=== PATIENT | male | born 1960 | race Caucasian/White ===

== ENCOUNTER 2017-01-17 10:51 | Emergency (ER) | payer OTHER | END 2017-01-17 14:10 | disposition home or self-care (01) | DX: K62.5 Hemorrhage of anus and rectum (principal); R03.0 Elevated blood-pressure reading, without diagnosis of hypertension; I48.91 Unspecified atrial fibrillation; Z87.19 Personal history of other diseases of the digestive system ==

== ENCOUNTER 2018-10-27 13:28 | Outpatient (CLI) | payer OTHER ==
--- NOTE | 2018-10-27 22:52 | Ultrasound Report ---
Reason: OTHER SPECIFIED JOINT DISORDERS, LEFT WRIST, MASS Procedure Date: 10/27/2018 Accession Number: [id number] / [id number] Procedure: US - Ext Limited Non Vascular CPT Code: FULL RESULT: EXAM: LEFT UPPER EXTREMITY ULTRASOUND - LIMITED EXAM DATE: 10/27/2018 01:37 PM. CLINICAL HISTORY: OTHER SPECIFIED JOINT DISORDERS, LEFT WRIST, MASS. COMPARISON: None. TECHNIQUE: Real-time scanning was performed with static images obtained. FINDINGS: Palpable finding corresponds to a subcutaneous nodular structure at the first carpometacarpal joint measuring 1.2 x 1.2 x 0.5 cm. No solid components or vascularity is noted. The nodular structure is superficial to the radial artery. Definite continuity with the joint space is not seen. The remaining soft tissues are unremarkable. IMPRESSION: Palpable finding corresponds to the focal hypoechoic cystic structure measuring 1.2 x 1.2 x 0.5 cm. No definite continuity with the joint space. If the finding continues to increase in size or becomes painful, recommend MRI examination. No additional soft tissue mass or adenopathy. RADIA
== END 2018-10-27 13:29 | disposition home or self-care (01) ==
LOC: DI 13:28
PROVIDERS: ATTEND Nurse Practitioner Family
DX: M25.832 Other specified joint disorders, left wrist (principal)
CPT/HCPCS: 76882

== ENCOUNTER 2020-05-19 17:41 | Emergency (ER) | payer OTHER ==
--- NOTE | 2020-05-19 18:27 | XRAY Report ---
PROCEDURE: Elbow 3 View RT INDICATIONS: Trauma TECHNIQUE: 3 views of the elbow were acquired. COMPARISON: None FINDINGS: Bones: No fractures or dislocations. No suspicious bony lesions. Soft tissues: There is marked elevation of the anterior fat pad with a large joint effusion. Marked s oft tissue swelling overlies the olecranon. No unexpected radiopaque foreign bodies. IMPRESSION: 1. Large joint effusion and marked soft tissue swelling over the olecranon suggesting bursitis. Pleas e note, simple joint effusion cannot be differentiated from septic arthritis in this situation. Pleas e correlate with laboratory values. Reviewed by: Christin Carrera MD on 05/19/2020 6:25 PM PDT Approved by: Christin Carrera MD on 05/19/2020 6:25 PM PDT Station ID: [id number]
[2020-05-19 18:55] LABS: BASOPHILS # (AUTO) 0.1 10^3/uL (0.0-0.1); BASOPHILS % (AUTO) 0.4 %; EOSINOPHILS % (AUTO) 0.3 %; HGB - HEMOGLOBIN 16.2 g/dL (14.0-18.0); LYMPHOCYTES # (AUTO) 1.3 10^3/uL (1.5-3.5); LYMPHOCYTES % (AUTO) 11.2 %; MEAN CORPUSCULAR HEMOGLOBIN 35.3 pg (27.0-31.0); MEAN CORPUSCULAR HGB CONC 35.6 g/dL (32.0-36.0); MEAN CORPUSCULAR VOLUME 99.1 fL (80.0-94.0); MEAN PLATELET VOLUME 8.5 fL (7.4-11.4); NEUTROPHILS % (AUTO) 78.6 %; PLT - PLATELET COUNT 268 10^3/uL (130-450); RED BLOOD COUNT 4.59 10^6/uL (4.70-6.10); WHITE BLOOD COUNT 11.5 x10^3/uL (4.8-10.8)
--- NOTE | 2020-05-19 19:07 | ED Physician Documentation ---
History of Present Illness - Stated complaint Stated Complaint: RT ARM PX - Chief complaint Chief Complaint: Ext Problem - History obtained from History obtained from: Patient - Additonal information Additional information: Patient is a 60-year-old male presents with right elbow swelling. He reports he has had a history of 2 surgeries on his right elbow the first was after he he had cellulitis to his elbow and then he reports bursitis and had an extended course of treatment with IV antibiotics through PICC line for several weeks ultimately the patient states that he went to the [facility] and was treated there by orthopedic surgery and infectious disease were eventually had a washout. He subsequently Developed a right triceps tendon rupture he eventually had surgery for that at the [facility] and the orthopedic surgery department as well. Actually today on arrival he reports he was sent here from a nurse practitioner for further evaluation the patient adamantly states he does not want any procedures done here such as incision or drainage or surgery or joint needle aspiration. Patient states he has an appointment tomorrow morning with his orthopedic surgeon at [facility] and states that he plans on going to the emergency department either tonight or tomorrow morning at the [facility] for further treatment.He denies any fevers he denies any new trauma. Review of Systems Constitutional: reports: Reviewed and negative Eyes: reports: Reviewed and negative Ears: reports: Reviewed and negative Nose: reports: Reviewed and negative Throat: reports: Reviewed and negative Cardiac: reports: Reviewed and negative Respiratory: reports: Reviewed and negative GI: reports: Reviewed and negative : reports: Reviewed and negative Skin: reports: Other (Right elbow swelling) Musculoskeletal: reports: Other (Right elbow swelling) Neurologic: reports: Reviewed and negative Psychiatric: reports: Reviewed and negative Endocrine: reports: Reviewed and negative Immunocompromised: reports: Reviewed and negative PD PAST MEDICAL HISTORY - Past Medical History Cardiovascular: Atrial fibrillation GI: Diverticulitis, Other - Past Surgical History General: Hiatal hernia repair - Present Medications Home Medications: Ambulatory Orders Medication Instructions Recorded Confirmed Aspirin 81 mg PO DAILY 01/17/17 03/28/17 Omeprazole [PriLOSEC] 20 mg PO DAILY 01/17/17 03/28/17 diltiaZEM [Cardizem] 60 mg PO ONCE 03/28/17 03/28/17 Clindamycin [Cleocin] 450 mg PO TID 14 Days #126 capsule 05/19/20 - Allergies Allergies/Adverse Reactions: Allergies Allergy/AdvReac Type Severity Reaction Status Date / Time No Known Drug Allergies Allergy Verified 05/19/20 17:49 - Social History Does the pt smoke?: No Smoking Status: Never smoker Does the pt drink ETOH?: Yes Does the pt have substance abuse?: Yes - Immunizations Immunizations are current?: Yes PD ED PE NORMAL - Vitals Vital signs reviewed: Yes - General General: Alert and oriented X 3, No acute distress - HEENT HEENT: PERRL - Neck Neck: Supple, no meningeal sign - Cardiac Cardiac: RRR, No murmur - Respiratory Respiratory: Clear bilaterally - Abdomen Abdomen: Normal bowel sounds, Soft, Non tender, Non distended - Derm Derm: Warm and dry - Extremities Extremities: No deformity, Other (The bursa over the right elbow is swollen it is not warm to touch its not erythematous he does have decreased range of motion radian, median ulnar motor and sensory exam are intact compartments are soft sensations intact light touch) - Neuro Neuro: Alert and oriented X 3 - Psych Psych: Normal mood, Normal affect Results - Vitals Vitals: Vital Signs - 24 hr 05/19/20 05/19/20 05/19/20 17:49 19:31 19:40 Temperature 37 C Heart Rate 115 H 114 H Respiratory 16 17 16 Rate Blood Pressure 136/97 H 138/106 H O2 Saturation 94 96 Oxygen O2 Source Room air - Labs Labs: Laboratory Tests 05/19/20 05/19/20 05/19/20 18:50 18:50 18:50 WBC 11.5 H RBC 4.59 L Hgb 16.2 Hct 45.5 MCV 99.1 H MCH 35.3 H MCHC 35.6 RDW 12.0 Plt Count 268 MPV 8.5 Neut # (Auto) 9.0 H Lymph # (Auto) 1.3 L [place] # (Auto) 1.0 Eos # (Auto) 0.0 Baso # (Auto) 0.1 Absolute Nucleated RBC 0.00 Nucleated RBC % 0.0 ESR 4 Sodium 135 Potassium 3.6 Chloride 99 L Carbon Dioxide 23 Anion Gap 13.0 BUN 13 Creatinine 1.0 Estimated GFR (MDRD) 76 L Glucose 90 Calcium 9.3 Total Bilirubin 1.2 H AST 30 ALT 52 Alkaline Phosphatase 71 C-Reactive Protein 19.4 H Total Protein 7.8 Albumin 4.4 Globulin 3.4 Albumin/Globulin Ratio 1.3 Lipase 27 PD MEDICAL DECISION MAKING - ED course Complexity details: considered differential (likely bursitis but need to rule out septic arthritis. patient does not want procedure done here. he has an appointment tomorrow morning with his orthopedic surgeon at . ), other (i recommended joint aspiration, patient is refusing. he has medical decision making capability and capacity and accepts all liability and responsibilty for any possible adverse outcome.) ED course: I had an extensive conversation with this patient regarding his swollen elbow. I updated him on his lab results as well as his imaging. I did recommend that we do joint aspiration to send off for analysis over the patient's refusing he reports that he has an appointment at the [facility] tomorrow morning with orthopedic surgeon and that if he develops fevers or worsening pain or swelling tonight he will go the emergency department at [facility] I recommend that he stay here and allow us to treat him by sending a sample of joint fluid from his right elbow however he is refusing he has medical decision-making capability capacity and assumes all risk and all liability. Patient will be started on oral antibiotics I did recommend an IV and IV antibiotics again the patient is refusing treatment. He is provided a prescription for clindamycin and given his first dose of clindamycin in the emergency department. Departure - Departure Disposition: 01 Home, Self Care Clinical Impression: Olecranon bursitis, right elbow Condition: Stable Instructions: ED Bursitis Elbow Olecranon Follow-Up: Jeanie Villasenor PA [Primary Care Provider] - Tomorrow Prescriptions: Clindamycin [Cleocin] 450 mg PO TID 14 Days #126 capsule Comments: follow up with orthopedic surgery tomorrow morning. if you have worsening pain, swelling or fever please return to an ED immediately. take clindamycin as directed. Discharge Date/Time: 05/19/20 19:49
[2020-05-19 19:27] LABS: ALBUMIN 4.4 g/dL (3.2-5.5); ALBUMIN/GLOBULIN RATIO 1.3 (1.0-2.2); BILIRUBIN,TOTAL 1.2 mg/dL (0.2-1.0); CALCIUM 9.3 mg/dL (8.5-10.3); CRP - C-REACTIVE PROTEIN 19.4 mg/dL (0-1.0); TOTAL PROTEIN 7.8 g/dL (6.7-8.2)
[2020-05-19] MEDS: CLINDAMYCIN 150 MG CAPSULE PO STA (19:28)
[2020-05-19 19:32] VITALS: BP 138/106
== END 2020-05-19 19:49 | disposition home or self-care (01) ==
LOC: ED 17:41
DX: M70.21 Olecranon bursitis, right elbow (principal); Z79.82 Long term (current) use of aspirin; Z53.20 Procedure and treatment not carried out because of patient's decision for unspecified reasons
CPT/HCPCS: 36415; 73080; 80053; 83690; 85025; 85651; 86140; 99284; A9270

== ENCOUNTER 2020-05-22 08:30 | Outpatient (CLI) | payer OTHER | END 2020-05-22 08:31 | disposition home or self-care (01) | LOC: COV 08:30 | PROVIDERS: ATTEND Family Medicine | DX: R50.9 Fever, unspecified (principal); Z20.828 Contact with and (suspected) exposure to other viral communicable diseases ==

== ENCOUNTER 2020-05-22 08:39 | Emergency (ER) | payer OTHER ==
[2020-05-22] MEDS ORDERED: BUFFERED LIDOCAINE 10 ML SYRINGE SUBQ STA (09:31)
--- NOTE | 2020-05-22 09:59 | ED Physician Documentation ---
History of Present Illness - Stated complaint Stated Complaint: RT ELBOW SWELLING - Chief complaint Chief Complaint: Ext Problem - History obtained from History obtained from: Patient - History of Present Illness Timing: How many days ago (5) - Additonal information Additional information: 60-year-old male with history of olecranon bursitis that became septic 3 years ago resulting in eventual triceps tendon rupture and repair has developed symptoms again about 5 days ago with swelling into his right elbow. The only thing he recalls to injury it is doing a bit of excessive housework with mopping. He presented to the emergency department 2 days ago and refused drainage at that time stating he had appointments he is orthopedic doctor the next day. Yesterday he developed a low-grade fever and his appointment was canceled and asked the patient to get a rapid COVID test and go to the emergency department. The patient re-presents here today with persistent swelling he states that the pain is no worse than it was earlier and the swelling does not appear to be much worse there is no significant redness to the area and the patient's fever has defervesced. He has been taking clindamycin. Review of Systems Constitutional: reports: Fever (resolved), Chills Ears: denies: Ear pain Nose: denies: Congestion Throat: denies: Sore throat Cardiac: denies: Chest pain / pressure Respiratory: denies: Dyspnea, Cough GI: denies: Abdominal Pain, Nausea, Vomiting : denies: Dysuria Skin: denies: Rash Musculoskeletal: reports: Joint pain, Joint swelling. denies: Neck pain, Back pain Neurologic: denies: Generalized weakness, Focal weakness, Numbness PD PAST MEDICAL HISTORY - Past Medical History Cardiovascular: Atrial fibrillation Respiratory: None Neuro: None Endocrine/Autoimmune: None GI: Diverticulitis, Other : None HEENT: None Psych: None Musculoskeletal: Other Derm: None - Past Surgical History Past Surgical History: Yes General: Hiatal hernia repair - Present Medications Home Medications: Ambulatory Orders Medication Instructions Recorded Confirmed Aspirin 81 mg PO DAILY 01/17/17 03/28/17 Omeprazole [PriLOSEC] 20 mg PO DAILY 01/17/17 03/28/17 diltiaZEM [Cardizem] 60 mg PO ONCE 03/28/17 03/28/17 Clindamycin [Cleocin] 450 mg PO TID 14 Days #126 capsule 05/19/20 - Allergies Allergies/Adverse Reactions: Allergies Allergy/AdvReac Type Severity Reaction Status Date / Time No Known Drug Allergies Allergy Verified 05/22/20 08:52 - Social History Does the pt smoke?: No Smoking Status: Never smoker Does the pt drink ETOH?: Yes Does the pt have substance abuse?: Yes - Immunizations Immunizations are current?: Yes - POLST Patient has POLST: No PD ED PE NORMAL - Vitals Vital signs reviewed: Yes (hypertensive ) - General General: Alert and oriented X 3, No acute distress, Well developed/nourished - HEENT HEENT: Atraumatic, PERRL, EOMI - Respiratory Respiratory: No respiratory distress - Derm Derm: Normal color, Warm and dry, No rash - Extremities Extremities: Other (There is swelling to the right olecrenon with mild tenderness, fluctuance and no significant erythema. The distal n/v is intact. ) - Neuro Neuro: Alert and oriented X 3, pulper tender 2-12 intact, No motor deficit, No sensory deficit, Normal speech Eye Opening: Spontaneous Motor: Obeys Commands Verbal: Oriented GCS Score: 15 - Psych Psych: Normal mood, Normal affect Results - Vitals Vitals: Vital Signs - 24 hr 05/22/20 05/22/20 05/22/20 08:40 10:41 12:15 Temperature 36.7 C 37.1 C Heart Rate 97 83 86 Respiratory 16 18 16 Rate Blood Pressure 128/98 H 126/99 H 111/98 H O2 Saturation 100 96 94 Oxygen O2 Source Room air - Labs Labs: Microbiology 05/22/20 Unknown Wound Culture - Preliminary Elbow - Right Procedures - Arthrocentesis Joint: Elbow Preparation: Sterile prep and drape Anesthesia: Lidocaine 1% Fluid: Cloudy, Sent for culture, Fluid obtained - cc (74) Aftercare: Dressing applied, No complications, Patient tolerated well PD MEDICAL DECISION MAKING - ED course Complexity details: reviewed old records, reviewed results, re-evaluated patient, considered differential, d/w patient, d/w healthcare network pricing consultant (Dr. Treviño at [facility] orthopedics recommends aspiration and culture with follow up. ) ED course: 60-year-old male with an acute olecranon bursitis with fluctuance is reluctant to have us drain his bursa here and I have contacted his orthopedic surgeon at [facility] who recommends drainage of the bursa and culture. The bursa is drained in a sterile fashion with return of 74 mL's of pus. We will continue the patient on his clindamycin and we now have a specimen for sensitivities. I believe the patient has demonstrated a response to the clindamycin and that he did not have progression of symptoms with the significant infectious load he has. I have offered the patient a dose of ertapenem which is what he had when he was treated at the [facility] 3 years ago. This is not available outside of the infusion clinic and vanco is reommended and the patient is given a single dose. Gram stain has a lot of WBC's and no organisms seen. Departure - Departure Disposition: Home, Self Care Clinical Impression: Olecranon bursitis, right elbow Condition: Stable Instructions: ED Bursitis Elbow Olecranon Follow-Up: Jeanie Villasenor PA [Primary Care Provider] - Porfirio Barbour MD [facility] [Other] Comments: Today there is infection in the bursa and you may require further treatment including surgery to wash the area out. We were able to obtain a specimen for culture today and results should be fully available in 3 days time. In the mean time take the clindamycin as prescribed. If you have worsening or new symptoms follow up here or with your doctors at the [facility]. Follow up with Dr. Griffin this coming week.
[2020-05-22] MEDS ORDERED: VANCOMYCIN INJ 1 GM in SODIUM CHLORIDE 0.9% 500 ML IV STA (10:13)
[2020-05-22] MEDS ORDERED: VANCOMYCIN INJ 1 GM, VANCOMYCIN INJ 500 MG in SODIUM CHLORIDE 0.9% 500 ML IV STA (10:15)
[2020-05-22] MEDS ORDERED: VANCOMYCIN INJ 1.75 GM in SODIUM CHLORIDE 0.9% 500 ML IV STA (10:16)
[2020-05-22 12:16] VITALS: BP 111/98
== END 2020-05-22 12:53 | disposition home or self-care (01) ==
LOC: ED 08:39
DX: M70.21 Olecranon bursitis, right elbow (principal); Z79.82 Long term (current) use of aspirin; R50.9 Fever, unspecified; R05 Cough; Z20.828 Contact with and (suspected) exposure to other viral communicable diseases
CPT/HCPCS: 20605; 87070; 87205; 87635; 96365; 96366; 99284; J3370

== ENCOUNTER 2020-05-30 08:18 | Emergency (ER) | payer OTHER ==
[2020-05-30] MEDS ORDERED: BUFFERED LIDOCAINE 10 ML SYRINGE SUBQ STA (08:24)
--- NOTE | 2020-05-30 08:25 | ED Physician Documentation ---
PD HPI UPPER EXT INJURY - Stated complaint Stated Complaint: RT ELBOW PX - History obtained from History obtained from: Patient - Additonal information Additional information: 60-year-old gentleman with a long history of problems with the right olecranon bursa. History of prolonged IV antibiotic therapy and subsequently required a Achilles allograft there. More recently has developed pain and swelling over the right elbow with some redness, no fevers. Has had it drained here and it grew group B strep. He remains on antibiotics but the effusion has returned. Review of Systems Constitutional: reports: Reviewed and negative Cardiac: reports: Reviewed and negative Respiratory: reports: Reviewed and negative PD PAST MEDICAL HISTORY - Past Medical History Cardiovascular: Atrial fibrillation Respiratory: None Neuro: None Endocrine/Autoimmune: None GI: Diverticulitis, Other : None HEENT: None Psych: None Musculoskeletal: Other Derm: None - Past Surgical History Past Surgical History: Yes General: Hiatal hernia repair - Present Medications Home Medications: Ambulatory Orders Medication Instructions Recorded Confirmed Aspirin 81 mg PO DAILY 01/17/17 03/28/17 Omeprazole [PriLOSEC] 20 mg PO DAILY 01/17/17 03/28/17 diltiaZEM [Cardizem] 60 mg PO ONCE 03/28/17 03/28/17 Clindamycin [Cleocin] 450 mg PO TID 14 Days #126 capsule 05/19/20 - Allergies Allergies/Adverse Reactions: Allergies Allergy/AdvReac Type Severity Reaction Status Date / Time No Known Drug Allergies Allergy Verified 05/30/20 08:28 - Social History Does the pt smoke?: No Smoking Status: Never smoker Does the pt drink ETOH?: Yes Does the pt have substance abuse?: Yes - Immunizations Immunizations are current?: Yes - POLST Patient has POLST: No PD ED PE NORMAL - Vitals Vital signs reviewed: Yes - General General: Alert and oriented X 3, No acute distress - Extremities Extremities: Other (Swollen and red over the olecranon bursa with minimally painful range of motion of the right elbow.) - Neuro Neuro: Alert and oriented X 3, Normal speech Results - Vitals Vitals: Vital Signs - 24 hr 05/30/20 08:25 Temperature 36.6 C Heart Rate 89 Respiratory 16 Rate Blood Pressure 155/108 H O2 Saturation 96 Oxygen O2 Source Room air Procedures - General procedure General procedure: Right elbow was prepped and draped and locally infiltrated with buffered lidocaine. Tried to aspirate with an 18-gauge needle but really not much came out. Subsequently made a tiny stab incision just with a needle and a large amount of thick purulent material was removed. Departure - Departure Disposition: Home, Self Care Clinical Impression: Olecranon bursitis, right elbow Condition: Good Record reviewed to determine appropriate education?: Yes Instructions: ED Bursitis Comments: Continue antibiotics, follow-up with your surgeon on Monday as discussed. Let him know that previous culture grew group B strep. Bring your prescription for antibiotics with you to that appointment.
[2020-05-30 09:02] VITALS: BP 128/101
== END 2020-05-30 09:02 | disposition home or self-care (01) ==
LOC: ED 08:18
DX: M70.21 Olecranon bursitis, right elbow (principal)
CPT/HCPCS: 20605

== ENCOUNTER 2022-03-21 09:34 | Emergency (ER) | payer OTHER ==
[2022-03-21 09:46] VITALS: BP 163/100
--- NOTE | 2022-03-21 10:00 | ED Physician Documentation ---
PD HPI UPPER EXT INJURY - Stated complaint Stated Complaint: RT ELBOW PAIN/INJURY - Chief complaint Chief Complaint: Ext Problem - History obtained from History obtained from: Patient - History of Present Illness Location: Right, Elbow Timing - onset: Last night - Additonal information Additional information: 62-year-old male with history of recurrent right elbow bursitis presents from home by private vehicle for 1 day of right elbow swelling. Patient states that whenever he overexerts himself it becomes swollen. Last time this happened the swelling became so large it became infected and required drainage in the emergency department. Patient is here for evaluation of his elbow to make sure that it is not infected and does not need additional drainage. Denies pain, fever, pain with range of motion, numbness, weakness, tingling Review of Systems Constitutional: denies: Fever, Chills, Myalgias, Fatigue, Weight Loss, Sweats, Reviewed and negative, Other Eyes: denies: Loss of vision, Decreased vision, Photophobia, Discharge, Irritation, Reviewed and negative, Other Ears: denies: Loss of hearing, Ear pain, Drainage/discharge, Tinnitus/ringing, Foreign body, Reviewed and negative, Other Nose: denies: Rhinorrhea / runny nose, Congestion, Epistaxis, Sinus pressure / pain, Foreign Body, Reviewed and negative, Other Throat: denies: Dental pain / toothache, Oral lesions / sores, Sore throat, Swollen tonsils, Swallowed foreign body, Reviewed and negative, Other Cardiac: denies: Chest pain / pressure, Palpitations, Pedal edema, Calf pain, Reviewed and negative, Other Respiratory: denies: Dyspnea, Cough, Hemoptysis, Wheezing, Reviewed and negative, Other GI: denies: Abdominal Pain, Abdominal Swelling, Nausea, Vomiting, Constipation, Diarrhea, Hematemesis, Bloody / black stool, Reviewed and negative, Other : denies: Dysuria, Frequency, Hesitancy, Unable to Void, Incontinent, Hematuria, Discharge, LMP, Vaginal bleeding, Irregular menses, Missed period, Now EGA, Control, Hysterectomy, Testicular pain, Testicular mass, To Problem, Reviewed and negative, Other Skin: denies: Rash, Lesions, Abrasion (s), Laceration (s), Bite / sting, Reviewed and negative, Other Musculoskeletal: reports: Joint swelling. denies: Neck pain, Back pain, Extremity pain, Joint pain, Extremity swelling Neurologic: denies: Generalized weakness, Focal weakness, Numbness, Difficulty speaking, Near syncope, Syncope, Seizure, Confused, Altered mental status, Unresponsive, Headache, Head injury, LOC, Reviewed and negative, Other PD PAST MEDICAL HISTORY - Past Medical History Cardiovascular: Atrial fibrillation Respiratory: None Neuro: None Endocrine/Autoimmune: None GI: Diverticulitis, Other : None HEENT: None Psych: None Musculoskeletal: Other Derm: None - Past Surgical History Past Surgical History: Yes General: Hiatal hernia repair - Present Medications Home Medications: Ambulatory Orders Medication Instructions Recorded Confirmed Aspirin 81 mg PO DAILY 01/17/17 03/21/22 Clindamycin [Cleocin] 450 mg PO TID 14 Days #126 capsule 05/19/20 03/21/22 Atorvastatin Calcium [Lipitor] 80 mg PO DAILY 03/21/22 03/21/22 Diltiazem HCl [Diltiazem 12Hr ER] 120 mg PO DAILY 03/21/22 03/21/22 Naproxen 500 mg PO BID PRN #30 tablet 03/21/22 - Allergies Allergies/Adverse Reactions: Allergies Allergy/AdvReac Type Severity Reaction Status Date / Time No Known Drug Allergies Allergy Verified 03/21/22 09:47 - Social History Does the pt smoke?: No Smoking Status: Never smoker Does the pt drink ETOH?: Yes Does the pt have substance abuse?: Yes - Immunizations Immunizations are current?: Yes - POLST Patient has POLST: No PD ED PE NORMAL - Vitals Vital signs reviewed: Yes - General General: Alert and oriented X 3, No acute distress, Well developed/nourished - HEENT HEENT: Atraumatic, PERRL - Neck Neck: Supple, no meningeal sign, No bony TTP - Cardiac Cardiac: RRR, No murmur, No gallop - Respiratory Respiratory: No respiratory distress, Clear bilaterally - Abdomen Abdomen: Soft, Non tender, Non distended - Male Male : Deferred - Rectal Rectal: Deferred - Back Back: No CVA TTP - Derm Derm: Normal color, Warm and dry, No rash - Extremities Extremities: No tenderness to palpate, Normal ROM s pain, No edema, No calf tenderness / cord, Other (ISOLATED SWELLING OVER OLECRANON OF R ELBOW. NO ERYTHEMA, PAIN) - Neuro Neuro: Alert and oriented X 3, drying room attendant 2-12 intact, No motor deficit, No sensory deficit, Normal speech, Other - Psych Psych: Normal mood, Normal affect Results - Vitals Vitals: Vital Signs - 24 hr 03/21/22 09:41 Temperature 36.4 C L Heart Rate 96 Respiratory 16 Rate Blood Pressure 163/100 H O2 Saturation 95 Oxygen O2 Source Room air PD MEDICAL DECISION MAKING - ED course Complexity details: reviewed old records ED course: Isolated olecranon swelling. Consistent with uncomplicated bursitis. There is no warmth, there is no tenderness palpation, there is no pain with range of movement of the joint. At this time incision and drainage is not indicated and would likely lead to complications. Patient has an Daniel wrap bandage with him that he says he uses on his elbow when it becomes swollen. Patient was counseled to continue to apply the compression dressing daily and to apply ice and take NSAIDs as needed for swelling. Patient was given a referral to an or thopedic clinic in the area and discharged in stable condition. Departure - Departure Disposition: 01 Home, Self Care Clinical Impression: Bursitis Qualifiers: Bursitis location: elbow Elbow bursitis location: olecranon bursitis Laterality: right Qualified Code(s): M70.21 - Olecranon bursitis, right elbow Condition: Good Instructions: ED Bursitis Prescriptions: Naproxen 500 mg PO BID PRN #30 tablet PRN Reason: Pain Comments: At this time your elbow is not infected. Keep compression bandage on, you may apply ice as needed for swelling. Take anti-inflammatory prescribed to you with food to avoid irritating the stomach. You will be given an address and phone number for an orthopedic clinic in [place]. If you notice worsening redness, pain, drainage, or if the area of swelling is warm and painful to the touch please return immediately for repeat evaluation, as this could indicate infect ion.
== END 2022-03-21 10:29 | disposition home or self-care (01) ==
LOC: ED 09:34
DX: M70.21 Olecranon bursitis, right elbow (principal); I48.91 Unspecified atrial fibrillation
CPT/HCPCS: 99282; 99283

== ENCOUNTER 2022-03-22 08:32 | Outpatient (CLI) | payer OTHER ==
--- NOTE | 2022-03-22 11:15 | CARDIAC PROCEDURE NOTE ---
Stress Test Report Service Date: 03/22/22 Service Time: 09:00 Ordering Provider: Alayna Brennan ARNP Indication for Test: Assess for inducible ischemia in high-risk patient due to co-morbid cerebrovascular disease and other risk factors, with intermittent chest discom fort. Significant Medical History: Len is referred for a treadmill stress myocardial perfusion imaging study, to evaluate intermittent chest pain episodes. He has a pertinent recent history of an acute stroke that occurred while he was visiting in [facility], requiring airlift to [place], where after admission he reports another stroke episode and undergoing left carotid endarterectomy. In his ongoing convalescence he notes that he tires easily and stamina has not returned to what it once was. He occasionally has visual difficulties, but his motor strength in the extremities is quite well-preserved and he is able to perform his usual self-care activities and take care of his home. At a recent visit with his healthcare team he described having some episodes of pressure-like central chest discomfort, occurring somewhat randomly, mostly in the setting of exertion, but occasionally at rest. When associated with exertion there can be diaphoresis an d shortness of breath, though not clearly reproducibly so. He is unable to say how long these episodes last. 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 He relates having started ASA, atorvastatin and diltiazem during his [place] hospitalization, though the indication for the latter medication is not entirely clear. He took the last dose of his daily 120 mg Diltiazem CD formulation approximately 42 hours prior to this test. Cardiac Risk Factors: Positive for hyperlipidemia and known obstructive carotid artery disease; no history of diabetes, hypertension, tobacco smoking ever nor family history of coronary artery disease. Type of Stress Test: ETT with Myocardial Perfusion Imaging Procedure: -Exercise Treadmill Test- After signing informed consent, the patient underwent resting SPECT imaging and then performed treadmill exercise using a Bert protocol. The patient exercised for 7 minutes 9 seconds and achieved a peak heart rate of 145 (92 percent predicted maximum heart rate for age), and an estimated workload of 8.8 METS. The test was terminated due to shortness of breath and leg fatigue. Resting heart rate: 104 Peak heart rate: 145 Tachycardic at rest with normal response to exercise. Resting BP: 165/113 Peak BP: 200/109 Hypertensive at rest with phyiologic increase of systolic and decrease of diastolic BPs with exercise. Rhythm during exercise: Sinus rhythm throughout with isolated PVCs Symptoms: The patient described NO chest discomfort during or after exercise. EKG at rest showed normal sinus rhythm with first-degree AV block, rR' pattern in lead V1 suggesting right ventricular conduction delay, scattered nonspecific ST elevation and borderline QTC. EKG at peak stress showed no ischemia by EKG criteria. In Recovery there was abnormal delay in decrease of HR and BP, which remained elevated at 6:00 (113 and 164/114 respectively). Nuclear imaging was performed at rest and with stress and interpretation will be reported separately. IMiguel Angel MD, was present throughout this treadmill stress study and supervised it in its entirety. Summary: 1) Exercise tolerance modestly decreased for age and sex as evidenced by ALEKSANDR of 10.4%. 2) Abnormal resting EKG. 3) Adequate level of exercise was achieved on this treadmill stress test. 4) Hypertensive at rest with physiologic BP response to exercise. 5) No ischemic changes by EKG criteria were seen at peak stress. 6) Analysis of gated nuclear images reveals normal left ventricular size and systolic function. SPECT analysis reveals a small fixed perfusion defect in the inferolateral region with supine imaging, that is not seen with prone stress imaging. These results are interpreted as showing no clear evidence of prior in farct or inducible ischemia. See separate report for more detail. CONCLUSIONS: 1) No symptom or EKG evidence of exercise-induced ischemia with adequate hemodynamic stress; modestly reduced exercise capacity was observed. 2) Nuclear imaging by SPECT analysis shows normal tracer distribution on prone stress imaging, most likely indicating no evidence of prior infarct nor inducible ischemia.
--- NOTE | 2022-03-22 15:40 | Nuclear Medicine Report ---
PROCEDURE: Rest and exercise myocardial perfusion SPECT with gated imaging and ejection fraction INDICATIONS: CHEST PAIN RADIOPHARMACEUTICAL: 12.8 mCi Tc-99m Myoview IV at rest and 39.7 mCi Tc-99m Myoview IV at peak exerc ise. Qvc-wcg-zujpedka was performed. TECHNIQUE: Radiopharmaceutical was injected at peak stress test, and also at rest. SPECT images wer e obtained. SPECT myocardial perfusion images were displayed in short axis, horizontal long axis, an d vertical long axis views. Gated images were reviewed using AutoQUANT software. COMPARISON: None available. FINDINGS: Raw data: There is good myocardial labeling by radiotracer. No significant motion artifacts. Lung- to-heart ratio is 0.41 (normal is less than 0.46 for tetrafosmin tracer). Left ventricle function: Gated images demonstrate normal left ventricle wall thickening. No segment al wall motion abnormality. No transient ischemic dilation; TID is 0.97 (normal less than 1.30). Th e left ventricle resting end-diastolic volume is normal. Left ventricle stress ejection fraction is 77%; normal values are above 45%. Myocardial perfusion: There is small, mild, fixed defect in the inferior lateral wall, which is reso lved on prone imaging, likely caused by attenuation artifact. There is otherwise normal distribution of activity in the left and right ventricular myocardium. No fixed or reversible perfusion defects t o suggest myocardial infarct or ischemia. IMPRESSION: 1. Probably normal myocardial perfusion images. No perfusion defects to suggest myocardial ischemia o r infarct. 2. Normal left ventricular volume and systolic function. 3. Please correlate with stress EKG result. PQRS ATTESTATIONS: Measure 322 - Is this imaging test primarily performed on a low-risk surgery patient for preoperative evaluation within 30 days preceding their low-risk non-cardiac surgery? Low-risk surgery is defined as cardiac or myocardial infarction less than 1%, including (but not limited to) endoscopic pr ocedures, superficial procedures, cataract surgery, and excisional breast surgery: Answer: No Measure 323 - Is this imaging test performed primarily for the monitoring of an asymptomatic patient who had percutaneous coronary intervention on the visit date or within 2 years of the visit date? An swer: No Measure 324 - Is this imaging test performed primarily for the initial detection and risk assessment on an asymptomatic, low coronary heart disease patient? Low CHD risk definition = clinicians should consider the maximum number of available patient factors used to estimate risk based on [place] (A TP III criteria), typically age, gender, diabetes, smoking status, and use of blood pressure medicati on, and integrate age appropriate estimates for missing elements, such as LDL or standard blood press ure. Answer: No Reviewed by: Marilynn Hugo MD on 03/22/2022 3:38 PM PDT Approved by: Marilynn Hugo MD on 03/22/2022 3:38 PM PDT Station ID: [id number]
== END 2022-03-22 08:33 | disposition home or self-care (01) ==
LOC: DI 08:32
PROVIDERS: ATTEND Nurse Practitioner Family
DX: R07.9 Chest pain, unspecified (principal); E78.5 Hyperlipidemia, unspecified; I65.29 Occlusion and stenosis of unspecified carotid artery
CPT/HCPCS: 78452; 93016; 93017; 93018; A9500

== ENCOUNTER 2022-05-19 16:45 | Emergency (ER) | payer OTHER ==
--- NOTE | 2022-05-19 16:49 | ED Physician Documentation ---
History of Present Illness - Stated complaint Stated Complaint: FIT - Chief complaint Chief Complaint: General - History obtained from History obtained from: Patient, Police - History of Present Illness Timing: Prior to arrival - Additonal information Additional information: 62-year-old male presents for medical screening examination prior to being taken to [facility]. Patient endorsed drinking alcohol today. Patient otherwise denies complaints, he is upset with law enforcement for removing him from his house. Review of Systems Unable to obtain: Intoxicated PD PAST MEDICAL HISTORY - Past Medical History Past Medical History: Yes Cardiovascular: Atrial fibrillation Respiratory: None Neuro: None Endocrine/Autoimmune: None GI: Diverticulitis, Other : None HEENT: None Psych: None Musculoskeletal: Other Derm: None - Past Surgical History Past Surgical History: Yes General: Hiatal hernia repair - Present Medications Home Medications: Ambulatory Orders Medication Instructions Recorded Confirmed Aspirin 81 mg PO DAILY 01/17/17 03/21/22 Clindamycin [Cleocin] 450 mg PO TID 14 Days #126 capsule 05/19/20 03/21/22 Atorvastatin Calcium [Lipitor] 80 mg PO DAILY 03/21/22 03/21/22 Diltiazem HCl [Diltiazem 12Hr ER] 120 mg PO DAILY 03/21/22 03/21/22 Naproxen 500 mg PO BID PRN #30 tablet 03/21/22 - Allergies Allergies/Adverse Reactions: Allergies Allergy/AdvReac Type Severity Reaction Status Date / Time No Known Drug Allergies Allergy Verified 05/19/22 16:46 - Social History Does the pt smoke?: No Smoking Status: Never smoker Does the pt drink ETOH?: Yes Does the pt have substance abuse?: Yes - Immunizations Immunizations are current?: Yes - POLST Patient has POLST: No PD ED PE NORMAL - Vitals Vital signs reviewed: Yes - General General: Alert and oriented X 3, Well developed/nourished, Other (intoxicated) - Cardiac Cardiac: RRR, Strong equal pulses - Respiratory Respiratory: No respiratory distress, Clear bilaterally - Derm Derm: Normal color, Warm and dry, No rash - Neuro Neuro: Alert and oriented X 3, line patroller 2-12 intact - Psych Psych: Normal mood, Normal affect Results - Vitals Vitals: Oxygen O2 Source Room air PD MEDICAL DECISION MAKING - ED course ED course: Medical screening exam. Patient stable for discharge to [facility] Departure - Departure Disposition: 01 Home, Self Care Clinical Impression: Alcohol intoxication, Encounter for medical screening examination Condition: Stable Instructions: ED Alcohol Intoxication
== END 2022-05-19 16:59 | disposition home or self-care (01) ==
LOC: ED 16:45
DX: Z02.89 Encounter for other administrative examinations (principal); F10.129 Alcohol abuse with intoxication, unspecified
CPT/HCPCS: 99281

== ENCOUNTER 2022-05-19 21:53 | Emergency (ER) | payer OTHER ==
[2022-05-19 22:30] LABS: BASOPHILS % (AUTO) 0.5 %; EOSINOPHILS % (AUTO) 0.1 %; HCT - HEMATOCRIT 45.1 % (42.0-52.0); HGB - HEMOGLOBIN 15.9 g/dL (14.0-18.0); LYMPHOCYTES # (AUTO) 1.4 10^3/uL (1.5-3.5); LYMPHOCYTES % (AUTO) 18.6 %; MEAN CORPUSCULAR HGB CONC 35.3 g/dL (32.0-36.0); MEAN CORPUSCULAR VOLUME 96.6 fL (80.0-94.0); MEAN PLATELET VOLUME 8.1 fL (7.4-11.4); MONOCYTES # (AUTO) 0.4 10^3/uL (0.0-1.0); MONOCYTES % (AUTO) 5.5 %; NEUTROPHILS # (AUTO) 5.5 10^3/uL (1.5-6.6); NEUTROPHILS % (AUTO) 74.8 %; PLT - PLATELET COUNT 378 10^3/uL (130-450); RED BLOOD COUNT 4.67 10^6/uL (4.70-6.10); RED CELL DISTRIBUTION WIDTH 12.5 % (12.0-15.0); WHITE BLOOD COUNT 7.4 x10^3/uL (4.8-10.8)
[2022-05-19 22:41] LABS: ALBUMIN 4.1 g/dL (3.2-5.5); ALBUMIN/GLOBULIN RATIO 1.1 (1.0-2.2); BILIRUBIN,TOTAL 0.4 mg/dL (0.2-1.0); CALCIUM 8.8 mg/dL (8.5-10.3); CREATININE 0.7 mg/dL (0.6-1.2); TOTAL PROTEIN 7.9 g/dL (6.7-8.2)
--- NOTE | 2022-05-19 23:13 | CT Report ---
PROCEDURE: Head W/O Stroke Protocol INDICATIONS: right sided weakness, numbness TECHNIQUE: Noncontrast 4.5 mm thick angled axial sections acquired from the foramen magnum to the vertex, with c oronal reformats. For radiation dose reduction, the following was used: automated exposure control, adjustment of mA and/or kV according to patient size. COMPARISON: FINDINGS: Image quality: Excellent. CSF spaces: There is mild cerebral volume loss with prominence of the ventricles and sulci. Basal ci sterns are patent. No extra-axial fluid collections. Brain: No intracranial hemorrhage, mass, or mass effect. Early-white matter interface is preserved. Skull and face: Calvarium and visualized facial bones are intact, without suspicious lesions. Sinuses: Visualized sinuses and mastoids are clear. IMPRESSION: 1. No intracranial hemorrhage or other imaging contraindications to TPA. Findings discussed with Dr. Rodas on 05/19/2022 at 11:09 PM. This study fulfills neurological imaging criteria for inclusion or exclusion of acute stroke therapie s based on available published neurological imaging guidelines. Reviewed by: James Haddad MD on 05/19/2022 11:11 PM PDT Approved by: James Haddad MD on 05/19/2022 11:11 PM PDT Station ID: [id number]
[2022-05-19 23:23] LABS: INR 1.1 (0.8-1.2); PT - PROTHROMBIN TIME 11.9 secs (9.9-12.6)
--- NOTE | 2022-05-19 23:27 | CT Report ---
PROCEDURE: ANGIO HEAD W/WO INDICATIONS: right arm/leg weakness CONTRAST: IV CONTRAST: Optiray 320 ml: 100 PO CONTRAST: *NO PO CONTRAST TECHNIQUE: After the administration of intravenous contrast, 1 mm thick sections acquired through the [place] of [place]. Postcontrast 4.5 mm thick sections then re-acquired from the foramen magnum to the vertex. 3-dimensional aajltzf-subrtxdgy-oykvcymeqk (MIP) and/or volume rendering reformats were acquired of t he central intracranial vasculature. For radiation dose reduction, the following was used: automate d exposure control, adjustment of mA and/or kV according to patient size. COMPARISON: Concurrent CT head and CT angiogram neck. FINDINGS: Image quality: Excellent. Anterior circulation: Intracranial internal carotid arteries are patent bilaterally. There is multi focal calcification along the cavernous segments of the internal carotid arteries bilaterally with as sociated mild multifocal narrowing. The paired anterior cerebral arteries are patent bilaterally. Th e middle cerebral arteries are also patent bilaterally. The anterior communicating artery is patent. No high-grade stenosis, occlusion, or discrete filling defects. No cerebral aneurysm identified. Posterior circulation: Visualized portions of the vertebral arteries appear patent and join to form a patent basilar artery. The posterior cerebral arteries are patent bilaterally. No high-grade steno sis, occlusion, or discrete filling defects. No cerebral aneurysm identified. CSF spaces: There is mild cerebral volume loss with prominence of the ventricles and sulci. Basal ci sterns are patent. No extra-axial fluid collections. Brain: No intracranial hematoma collections, mass, or mass effect. Early-white matter interface is pr eserved. No abnormal intracranial enhancement. Skull and face: Calvarium and facial bones appear intact, without suspicious lesions. Sinuses: Visualized sinuses and mastoids are clear. IMPRESSION: 1. No high-grade stenosis or occlusion of the central intracranial arteries. 2. No definite acute intracranial abnormality. 3. Mild cerebral volume loss. Reviewed by: James Haddad MD on 05/19/2022 11:26 PM PDT Approved by: James Haddad MD on 05/19/2022 11:26 PM PDT Station ID: [id number]
[2022-05-19 23:30] LABS: PARTIAL THROMBOPLASTIN TIME 27.1 secs (24.9-33.3)
--- NOTE | 2022-05-19 23:33 | CT Report ---
PROCEDURE: ANGIO NECK W INDICATIONS: right arm/leg weakness CONTRAST: IV CONTRAST: Optiray 320 ml: 100 PO CONTRAST: *NO PO CONTRAST TECHNIQUE: After the administration of intravenous contrast, 1.5 mm axial sections acquired from the aortic arch to the [place] of [place]. Coronal 3-D maximum intensity projection (MIP) and/or volume rendering ref ormats were then performed. For radiation dose reduction, the following was used: automated exposur e control, adjustment of mA and/or kV according to patient size. COMPARISON: Concurrent CTA of the head and CT of the head. FINDINGS: Image quality: Excellent. PROCEDURE: ANGIO NECK W INDICATIONS: right arm/leg weakness TECHNIQUE: Pre-contrast 4.5 mm thick sections acquired from the foramen magnum to the vertex. After the adminis tration of intravenous contrast, 1 mm thick sections acquired from the aortic arch through the [place] of [place]. Post-contrast 4.5 mm thick sections then re-acquired from the foramen magnum to the vert ex. 3-dimensional iwahnfu-pwakwgzcl-jxvzzvhujw (MIP) and/or volume rendering reformats were acquired of the central intracranial vasculature and neck separately. For radiation dose reduction, the foll owing was used: automated exposure control, adjustment of mA and/or kV according to patient size. CONTRAST: IV CONTRAST: Optiray 320 ml: 100 PO CONTRAST: *NO PO CONTRAST COMPARISON: Concurrent CTA of the brain and CT of the head. FINDINGS: Image quality: Excellent. NECK CT ANGIOGRAPHY: Carotid system: The great vessels demonstrate a bovine aortic arch with common origin of the right b rachycephalic and left common carotid arteries as they arise from the aortic arch. The origins of th e common carotid arteries appear patent. The common carotid arteries demonstrate normal caliber and courses. There is partially calcified plaque in the right carotid bulb with narrowing of up to approx imately 50%. The left carotid bulb appears widely patent. The subsequent internal carotid arteries de monstrate normal calibers and courses. Posterior circulation: The origins of the vertebral arteries both appear widely patent. The more vazquez perior extracranial portions of both vertebral arteries also demonstrate normal courses and calibers. They join to form a normal appearing basilar artery. Soft tissues: Visualized neck soft tissues demonstrate no suspicious abnormalities. Bones: No suspicious bony lesions. Visualized cervical spine appears normally aligned. IMPRESSION: 1. No high-grade stenosis or occlusion of the head and neck arteries. 2. Narrowing of up to approximately 50% in the right carotid bulb. The estimate of stenosis included in the report of the imaging study was calculated using the NASCET method Reviewed by: James Haddad MD on 05/19/2022 11:37 PM PDT Approved by: James Haddad MD on 05/19/2022 11:37 PM PDT Station ID: [id number]
[2022-05-20] MEDS ORDERED: ONDANSETRON 4 MG/2 ML VIAL IVP STA (00:48)
[2022-05-20] MEDS ORDERED: MAG HYDROX/AL HYDROX/SIMETH 30 ML UDC PO STA (00:48)
[2022-05-20] MEDS ORDERED: FAMOTIDINE 20 MG/2 ML VIAL IVP STA (00:48)
[2022-05-20] MEDS ORDERED: LIDOCAINE VISCOUS 2% 15 ML UDC MM STA (00:48)
[2022-05-20] MEDS ORDERED: SODIUM CHLORIDE 0.9% 1,000 ML IV STA (01:36)
[2022-05-20] MEDS ORDERED: LORazepam 0.5 MG TABLET PO STA (01:37)
[2022-05-20] MEDS ORDERED: ASPIRIN CHEW 81 MG TABLET PO STA (01:37)
[2022-05-20] MEDS ORDERED: METOPROLOL 5 MG/5 ML VIAL IVP STA (02:18)
[2022-05-20 03:13] LABS: B. PARAPERTUSSIS- RESP PCR PAN NOT DETECTED; B. PERTUSSIS- RESP PCR PANEL NOT DETECTED; C. PNEUMONIAE- RESP PCR PANEL NOT DETECTED; CORONAVIRUS 229E-RESP PCR NOT DETECTED; CORONAVIRUS HKU1-RESP PCR NOT DETECTED; CORONAVIRUS NL63-RESP PCR NOT DETECTED; CORONAVIRUS OC43-RESP PCR NOT DETECTED; HUMAN METAPNEUMOVIRUS NOT DETECTED; INFLUENZA A- RESP PCR PANEL NOT DETECTED; INFLUENZA B - RESP PCR PANEL NOT DETECTED; M. PNEUMONIAE- RESP PCR PANEL NOT DETECTED; PARAINFLUENZA VIRUS 1 NOT DETECTED; PARAINFLUENZA VIRUS 2 NOT DETECTED; PARAINFLUENZA VIRUS 3 NOT DETECTED; PARAINFLUENZA VIRUS 4 NOT DETECTED; RHINOVIRUS/ENTEROVIRUS NOT DETECTED; RSV- RESP PCR PANEL NOT DETECTED; SARS-CoV-2 -RESP PCR PANEL NOT DETECTED
[2022-05-20 03:39] LABS: BILIRUBIN,URINE NEGATIVE (NEGATIVE); GLUCOSE, URINE (UA) NEGATIVE (NEGATIVE); KETONES,URINE (UA) TRACE mg/dL (NEGATIVE); LEUKOCYTE ESTERASE, URINE NEGATIVE (NEGATIVE); NITRITE,URINE NEGATIVE (NEGATIVE); OCCULT BLOOD,URINE NEGATIVE (NEGATIVE); PH,URINE 6.5 PH (5.0-7.5); PROTEIN,URINE NEGATIVE (NEGATIVE); UROBILINOGEN,URINE 0.2 (NORMAL) E.U./dL (NORMAL)
[2022-05-20 03:43] LABS: CLARITY,URINE CLEAR (CLEAR)
--- NOTE | 2022-05-20 08:00 | ED Physician Documentation ---
PD HPI FOCAL NEURO - Stated complaint Stated Complaint: R ARM/LEG SPASM - Chief complaint Chief Complaint: Neuro - History obtained from History obtained from: Patient, Police - History of Present Illness Timing - onset: Unknown (patient says he does not know when the weakness started (see narrative below)) Time of symptom onset unknown: Time of onset unknown Severity of deficit: Moderate Weakness: Arm, Hand, Leg, Foot, Right Numbness: Arm, Hand, Leg, Foot, Right Associated symptoms: No: Headache, Nausea / vomiting, Fall, Head injury, Chest pain, Neck pain, Back pain, Fever Contributing factors: negative: Anticoagulated Baseline status: positive: A&OX3, ambulatory, indep Similar symptoms before: Diagnosis (has had previous CVA) Recently seen: Not recently seen - Additional information Additional information: patient brought to ED by police. patient states "my right side went numb on me", he says he does not know when this started but that it was not present yesterday. Police say that patient started c/o numbness and weakness of RUE/RLE approximately 9 PM. However, patient was intoxicated earlier today and he says he has "memory issues" (per patient) due to a previous CVA. Patient says he had CVA and left carotid endarterectomy at [facility] in [place] in October (2021) and at that time had some right-sided weakness/numbness but that the lasting/residual deficits are memory "issues" and problems with his moods. He says he is supposed to be taking aspirin and diltiazem but hasn't taken these for several months. Patient was T+R from this ED earlier this afternoon for medical clearance for confinement. Review of Systems Constitutional: denies: Fever, Chills, Sweats Eyes: reports: Reviewed and negative Cardiac: reports: Reviewed and negative Respiratory: reports: Reviewed and negative GI: reports: Reviewed and negative Skin: reports: Reviewed and negative Musculoskeletal: reports: Reviewed and negative Neurologic: reports: Focal weakness, Numbness. denies: Generalized weakness, Difficulty speaking, Near syncope, Headache, Head injury, LOC PD PAST MEDICAL HISTORY - Past Medical History Past Medical History: Yes Cardiovascular: Hypertension Neuro: CVA GI: Diverticulitis - Past Surgical History Past Surgical History: No General: Other Ortho: Other Derm: Skin grafts - Present Medications Home Medications: Ambulatory Orders Medication Instructions Recorded Confirmed Aspirin 81 mg PO DAILY 01/17/17 03/21/22 Clindamycin [Cleocin] 450 mg PO TID 14 Days #126 capsule 05/19/20 03/21/22 Atorvastatin Calcium [Lipitor] 80 mg PO DAILY 03/21/22 03/21/22 Diltiazem HCl [Diltiazem 12Hr ER] 120 mg PO DAILY 03/21/22 03/21/22 Naproxen 500 mg PO BID PRN #30 tablet 03/21/22 Clopidogrel [Plavix] 75 mg PO DAILY 30 Days #30 tablet 05/20/22 - Allergies Allergies/Adverse Reactions: Allergies Allergy/AdvReac Type Severity Reaction Status Date / Time No Known Drug Allergies Allergy Verified 05/20/22 09:51 - Social History Does the pt smoke?: No Smoking Status: Never smoker Does the pt drink ETOH?: Yes ETOH Use: Beer Does the pt have substance abuse?: No - Immunizations Immunizations are current?: Yes - POLST Patient has POLST: No PD ED PE NORMAL - Vitals Vital signs reviewed: Yes - General General: Alert and oriented X 3, No acute distress, Well developed/nourished - HEENT HEENT: PERRL, EOMI, Moist mucous membranes - Neck Neck: Supple, no meningeal sign - Cardiac Cardiac: RRR, No murmur, No gallop, No rub - Respiratory Respiratory: No respiratory distress, Clear bilaterally - Abdomen Abdomen: Soft, Non tender - Derm Derm: Normal color, Warm and dry - Extremities Extremities: No edema - Neuro Neuro: Alert and oriented X 3, director of women's services 2-12 intact, Normal speech Eye Opening: Spontaneous Motor: Obeys Commands Verbal: Oriented GCS Score: 15 PD ED PE EXPANDED - Neuro Neuro: Weakness (RUE (gradual drift to bed), RLE (rapid drift to bed)), Abnormal sensation (decreased LTS RUE, RLE) NIHSS - Level of Consciousness Level of consciousness: (0) Alert, Keenly responsive LOC Questions: (0) Answers both Q's correct LOC Commands: (0) Performs both correctly - Gaze Best Gaze: (0) Normal - Visual Visual: (0) No loss - Facial Palsy Facial Palsy: (0) Normal, symmetrical movement - Motor Arms (both separate) Motor Arm (right): (2) Some effort against gravity Motor Arm (left): (0) No drift - Motor Legs (both separate) Motor Leg (right): (2) Some effort against gravity Motor Leg (left): (0) No drift - Limb Ataxia Limb Ataxia: (0) Absent - Sensory Sensory: (1) Etnv-yw-eijtracd loss - Best Language Best Language: (0) No aphasia - Dysarthria Dysarthria: (0) Normal - Extinction and Inattention (formally neg Extinction and inattention: (1) Visual,tactile,auditory,spatial, or personal inattention - Total Score/Results Total Score/Result: 6 Results - Vitals Vitals: Vital Signs - 24 hr 05/20/22 05/20/22 05/20/22 05:00 06:11 06:30 Temperature 36.9 C 36.9 C Heart Rate 100 104 H 103 H Respiratory 13 17 22 Rate Blood Pressure 151/111 H 150/93 H 155/106 H O2 Saturation 96 92 94 05/20/22 05/20/22 05/20/22 07:00 07:30 08:30 Temperature Heart Rate 100 101 H 105 H Respiratory 22 20 22 Rate Blood Pressure 160/114 H 174/105 H 173/102 H O2 Saturation 91 L 93 93 05/20/22 05/20/22 05/20/22 09:00 09:30 11:30 Temperature Heart Rate 106 H 106 H 75 Respiratory 20 17 17 Rate Blood Pressure 167/110 H 168/105 H 170/95 H O2 Saturation 94 94 93 Oxygen O2 Source Room air Oxygen Flow Rate 2 - EKG (time done) No standard instances Rate: Rate (enter#) (108) Rhythm: Sinus tachycardia [place]: LAD Intervals: Normal OK QRS: Normal Ischemia: Normal ST segments - Labs Labs: Laboratory Tests 05/19/22 05/19/22 05/19/22 03:34 22:23 22:23 WBC 7.4 RBC 4.67 L Hgb 15.9 Hct 45.1 MCV 96.6 H MCH 34.0 H MCHC 35.3 RDW 12.5 Plt Count 378 MPV 8.1 Neut # (Auto) 5.5 Lymph # (Auto) 1.4 L [place] # (Auto) 0.4 Eos # (Auto) 0.0 Baso # (Auto) 0.0 Absolute Nucleated RBC 0.00 Nucleated RBC % 0.0 PT INR APTT Sodium 144 Potassium 4.0 Chloride 107 Carbon Dioxide 23 Anion Gap 14.0 H BUN 9 Creatinine 0.7 Estimated GFR (MDRD) 114 Glucose 113 H Calcium 8.8 Total Bilirubin 0.4 AST 28 ALT 34 Alkaline Phosphatase 90 B-Natriuretic Peptide Total Protein 7.9 Albumin 4.1 Globulin 3.8 Albumin/Globulin Ratio 1.1 Lipase 42 Urine Color YELLOW Urine Clarity CLEAR Urine pH 6.5 Ur Specific [place] <=1.005 Urine Protein NEGATIVE Urine Glucose (UA) NEGATIVE Urine Ketones TRACE Urine Occult Blood NEGATIVE Urine Nitrite NEGATIVE Urine Bilirubin NEGATIVE Urine Urobilinogen 0.2 (NORMAL) Ur Leukocyte Esterase NEGATIVE Ur Microscopic Review NOT INDICATED Urine Culture Comments NOT INDICATED Nasal Adenovirus (PCR) Nasal B. parapertussis DNA (PCR) Nasal Coronavir 229E PCR Nasal Coronavir HKU1 PCR Nasal Coronavir NL63 PCR Nasal Coronavir OC43 PCR Nasal Enterovir/Rhinovir PCR Nasal Influenza B PCR Nasal Influenza A PCR Nasal Parainfluen 1 PCR Nasal Parainfluen 2 PCR Nasal Parainfluen 3 PCR Nasal Parainfluen 4 PCR Nasal RSV (PCR) Nasal B.pertussis DNA PCR Nasal C.pneumoniae (PCR) [place] Human Metapneumo PCR Nasal M.pneumoniae (PCR) Nasal SARS-CoV-2 (PCR) 05/19/22 05/20/22 05/20/22 23:10 02:15 03:51 WBC RBC Hgb Hct MCV MCH MCHC RDW Plt Count MPV Neut # (Auto) Lymph # (Auto) [place] # (Auto) Eos # (Auto) Baso # (Auto) Absolute Nucleated RBC Nucleated RBC % PT 11.9 INR 1.1 APTT 27.1 Sodium Potassium Chloride Carbon Dioxide Anion Gap BUN Creatinine Estimated GFR (MDRD) Glucose Calcium Total Bilirubin AST ALT Alkaline Phosphatase B-Natriuretic Peptide 43 Total Protein Albumin Globulin Albumin/Globulin Ratio Lipase Urine Color Urine Clarity Urine pH Ur Specific [place] Urine Protein Urine Glucose (UA) Urine Ketones Urine Occult Blood Urine Nitrite Urine Bilirubin Urine Urobilinogen Ur Leukocyte Esterase Ur Microscopic Review Urine Culture Comments Nasal Adenovirus (PCR) NOT DETECTED Nasal B. parapertussis DNA (PCR) NOT DETECTED Nasal Coronavir 229E PCR NOT DETECTED Nasal Coronavir HKU1 PCR NOT DETECTED Nasal Coronavir NL63 PCR NOT DETECTED Nasal Coronavir OC43 PCR NOT DETECTED Nasal Enterovir/Rhinovir PCR NOT DETECTED Nasal Influenza B PCR NOT DETECTED Nasal Influenza A PCR NOT DETECTED Nasal Parainfluen 1 PCR NOT DETECTED Nasal Parainfluen 2 PCR NOT DETECTED Nasal Parainfluen 3 PCR NOT DETECTED Nasal Parainfluen 4 PCR NOT DETECTED Nasal RSV (PCR) NOT DETECTED Nasal B.pertussis DNA PCR NOT DETECTED Nasal C.pneumoniae (PCR) NOT DETECTED [place] Human Metapneumo PCR NOT DETECTED Nasal M.pneumoniae (PCR) NOT DETECTED Nasal SARS-CoV-2 (PCR) NOT DETECTED - Rads (name of study) CT head Radiology: Prelim report reviewed, See rad report chest xray Radiology: Prelim report reviewed, See rad report CTA head Radiology: Prelim report reviewed, See rad report CTA neck Radiology: Prelim report reviewed, See rad report PD MEDICAL DECISION MAKING - ED course Complexity details: reviewed old records, reviewed results, re-evaluated patient, considered differential, d/w patient ED course: presents with right-sided weakness and numbness, unclear time of onset due to being heavily intoxicated earlier today. Telestroke consult obtained. They recommend NOT giving tPA due to the lack of clear time of onset. Due to patient's ongoing symptoms (right arm and leg weakness), they recommend admit for observation and MRI when available. They also recommend daily PO aspirin. Unfortunately, there are no beds available at [facility] and MRI is not available until Monday (three days from the time of this evaluation). Multiple hospitals were contacted including [facility], [facility], [facility], [facility], [facility], [facility], [facility]; all of these hospitals have no beds available. Alayna Dodson anticipates they will have a bed available later this morning and Dr. Mauro (neurohospitalist) accepts patient for transfer which will be undertaken once the bed is available. Care of patient turned over to oncoming ED physician pending bed availability. - TPA CVA checklist Inclusion crititeria: positive: Sig neuro deficit, CT no bleed. negative: Onset know < 4.5 hr Departure - Departure Disposition: 01 Home, Self Care Clinical Impression: Weakness, Acute right-sided weakness, History of CVA with residual deficit Condition: Good Instructions: ED Transient Ischemic Attack Prescriptions: Clopidogrel [Plavix] 75 mg PO DAILY 30 Days #30 tablet Discharge Date/Time: 05/20/22 11:30
--- NOTE | 2022-05-20 09:43 | XRAY Report ---
PROCEDURE: Chest 2 View X-Ray INDICATIONS: hypoxia TECHNIQUE: 2 view(s) of the chest. COMPARISON: Chest x-ray report, 06/21/2010. FINDINGS: Surgical changes and devices: None. Lungs and pleura: No pleural effusions or pneumothorax. Mild bilateral interstitial prominence. Left basilar scars/atelectasis Mediastinum: Mediastinal contours are normal. Heart size is normal. Bones and chest wall: No suspicious bony abnormalities. Soft tissues appear unremarkable. IMPRESSION: 1. Mild bilateral interstitial prominence. 2. Left basilar scars and atelectasis. No significant discrepancy with the preliminary interpretation. Reviewed by: Marilynn Hugo MD on 05/20/2022 9:41 AM PDT Approved by: Marilynn Hugo MD on 05/20/2022 9:41 AM PDT Station ID: [id number]
[2022-05-20] MEDS ORDERED: CLOPIDOGREL 75 MG TABLET PO STA (10:53)
--- NOTE | 2022-05-20 10:58 | ED Physician Documentation ---
ED Addendum - Addendum Addendum: 05/20/22 10:54 After change of shift, we still have not heard from Alayna Dodson about bed availability. Sounds likely to be in the afternoon. However the patient states she is feeling improved with fairly good improvement in the arm and leg strength. He is able to lift the leg off the cart though it is a little sluggish. He can lift both hands in the air though a little bit weaker on the right. [employer] Wel[employer] strength is less on the right. No obvious facial droop. At this point the patient would rather go home. We discussed the potential treatment decision pathway of getting an MRI to see if there is any signs of new injury in the area that he states of a prior stroke. We could continue working on transfer to another facility that would have that availability today or through the weekend. Otherwise if he wished to go home and would consider having him continue with his aspirin daily more regularly and stay well-hydrated. I would also consider adding clopidogrel for at least the next week or 2 pending follow-up and potential further imaging. We discussed my thoughts on treatment pathways of: If he got an MRI and it was abnormal showing a new area of injury, it would be mostly seen how much improvement he had in symptoms and continuing the aspirin and adding Plavix since there is no large vessel occlusion by CT angio. If he had an MRI and it was no acute changes, there would still be concern for TIA and so the same aspirin and Plavix in the short-term. Other considerations would be for physiologic stress on the system and augmenting of prior area of injury in which case the aspirin still makes sense but more focused on hydration etc. He can follow-up with his primary care for outpatient MRI and follow-up. He would prefer that option and is in agreement with the aspirin Plavix idea at this point. At this point we will allow the patient to be discharged. He is apparently not in custody anymore so as the ability for discharge choice of disposition. Disposition: The patient is discharged from the emergency department in stable condition. Diagnoses: 1. Right sided weakness, improving 2. Reported history of stroke
[2022-05-20 14:07] VITALS: BP 170/95
== END 2022-05-20 11:30 | disposition home or self-care (01) ==
LOC: MERGE 21:53 → ED 21:53
DX: R29.898 Other symptoms and signs involving the musculoskeletal system (principal); R20.0 Anesthesia of skin; R53.1 Weakness; I69.30 Unspecified sequelae of cerebral infarction; Z02.89 Encounter for other administrative examinations; F10.129 Alcohol abuse with intoxication, unspecified; Z20.822 Contact with and (suspected) exposure to COVID-19
CPT/HCPCS: 36415; 70450; 70496; 70498; 71046; 80053; 81003; 83690; 83880; 85025; 85610; 85730; 87633; 93005; 96361; 96374; 96375; 99281; 99284; A9270; Q9967; 81001; 87086

== ENCOUNTER 2022-06-11 07:53 | Emergency (ER) | payer OTHER ==
--- NOTE | 2022-06-11 08:06 | ED Physician Documentation ---
PD HPI UPPER EXT INJURY - Stated complaint Stated Complaint: R ELBOW PAIN - Chief complaint Chief Complaint: Ext Problem - History obtained from History obtained from: Patient - History of Present Illness Location: Right, Elbow Type of injury: No: Fall, Blunt / blow Where injury occurred: Home Timing - onset: How many days ago (onset of redness, swelling, tenderness right elbow 2 days ago and increasing. No noted injury. Had small abrasion on elbow but no pucnture nor lac. No drainage. Has increased pain today and last evening had fever. No URI symptoms.) Timing - duration: Days (2-3) Timing - details: Gradual onset, Still present Improved by: Rest Worsened by: Moving, Palpating Associated symptoms: Swelling, Discolored (red). No: Weakness, Numbness Similar symptoms before: Diagnosis (has had infectd bursitis several years ago and had surgery for it at the time.) Recently seen: Not recently seen Review of Systems Constitutional: reports: Fever (last night) Nose: denies: Rhinorrhea / runny nose, Congestion Throat: denies: Sore throat Cardiac: denies: Chest pain / pressure Respiratory: denies: Cough GI: denies: Abdominal Pain, Nausea, Vomiting, Diarrhea Neurologic: denies: Generalized weakness, Focal weakness, Numbness PD PAST MEDICAL HISTORY - Past Medical History Cardiovascular: Atrial fibrillation, Hypertension Respiratory: None Neuro: None, CVA Endocrine/Autoimmune: None GI: Diverticulitis, Other : None HEENT: None Psych: None Musculoskeletal: Other Derm: None - Past Surgical History Past Surgical History: No General: Hiatal hernia repair, Other Ortho: Other Derm: Skin grafts - Present Medications Home Medications: Ambulatory Orders Medication Instructions Recorded Confirmed Aspirin 81 mg PO DAILY 01/17/17 06/11/22 Atorvastatin Calcium [Lipitor] 80 mg PO DAILY 03/21/22 06/11/22 Diltiazem HCl [Diltiazem 12Hr ER] 120 mg PO DAILY 03/21/22 06/11/22 Clopidogrel [Plavix] 75 mg PO DAILY 30 Days #30 tablet 05/20/22 06/11/22 Sulfamethox/Trimeth 800/160 1 each PO BID #14 tablet 06/11/22 [Bactrim Ds 800/160] cephALEXin [Keflex] 500 mg PO TID #20 cap 06/11/22 - Allergies Allergies/Adverse Reactions: Allergies Allergy/AdvReac Type Severity Reaction Status Date / Time No Known Drug Allergies Allergy Verified 06/11/22 07:58 - Social History Does the pt smoke?: No Smoking Status: Never smoker Does the pt drink ETOH?: Yes Does the pt have substance abuse?: No - Immunizations Immunizations are current?: Yes - POLST Patient has POLST: No PD ED PE NORMAL - Vitals Vital signs reviewed: Yes - General General: Alert and oriented X 3, No acute distress, Well developed/nourished - Derm Derm: Normal color, Warm and dry - Extremities Extremities: Other (right elbow with warmth, redness, some effusion, and marked tenderness over the posterior aspect. Bursal effusion, without joint effusion. Small amount of redness extending proximal on posterior aspect (triceps area).) - Neuro Neuro: Alert and oriented X 3, No motor deficit, No sensory deficit, Normal speech Results - Vitals Vitals: Vital Signs - 24 hr 06/11/22 06/11/22 06/11/22 07:58 09:43 09:49 Temperature 38.0 C H 37.4 C Heart Rate 112 H 102 H Respiratory 18 16 Rate Blood Pressure 150/106 H 136/106 H O2 Saturation 94 94 Oxygen O2 Source Room air - Labs Labs: Microbiology 06/11/22 08:56 Wound Culture - Preliminary Elbow - Right Laboratory Tests 06/11/22 06/11/22 08:35 08:56 Sodium 135 Potassium 4.2 Chloride 100 L Carbon Dioxide 23 Anion Gap 12.0 BUN 10 Creatinine 1.0 Estimated GFR (MDRD) 75 L Glucose 121 H Calcium 9.5 Fluid Source RIGHT ELBOW FLUID Fluid Color YELLOW Fluid Clarity CLOUDY Fluid WBC 39448 Fluid RBC 9000 Fluid Neutrophils % 93 Fluid Lymphocytes % 5 Fluid Monocytes % 2 Fld Mesothelial Cell % Not Reportable PD MEDICAL DECISION MAKING - ED course Complexity details: reviewed results, considered differential (olecranon bursitis, with concern for infectious versus inflammatory. ), d/w patient Departure - Departure Disposition: 01 Home, Self Care Clinical Impression: Olecranon bursitis of right elbow Condition: Stable Record reviewed to determine appropriate education?: Yes Instructions: ED Bursitis Elbow Olecranon Follow-Up: JOSE CABRALES ARNP [Primary Care Provider] - Prescriptions: Sulfamethox/Trimeth 800/160 [Bactrim Ds 800/160] 1 each PO BID #14 tablet cephALEXin [Keflex] 500 mg PO TID #20 cap Comments: You can use a wrap to the elbow to try to reduce some of the swelling. Sling to reduce motion. Use anti-inflammatory such as naproxen or ibuprofen 3 times daily with food to help with the pain and inflammation. To that add Tylenol every 4-6 hours if needed for pain. We will presume it being infected at this point. The test of that will be the culture that will result over 2 to 3 days. Meanwhile we will cover it with antibiotics for both staph and strep coverage to include Bactrim and cephalexin antibiotics. We can call you with the culture results if the antibiotics need modifying based on that. I transmitted your prescriptions to [facility] pharmacy. Discharge Date/Time: 06/11/22 10:01
[2022-06-11] MEDS ORDERED: cefTRIAXone 1 GM VIAL IVP STA (08:24)
[2022-06-11] MEDS ORDERED: KETOROLAC 15 MG/ML VIAL IVP STA (08:25)
[2022-06-11] MEDS ORDERED: ACETAMINOPHEN 325 MG TABLET PO STA (08:25)
[2022-06-11] MEDS ORDERED: SULFAMETH/TRIMETH DS 800/160 MG TABLET PO STA (08:25)
[2022-06-11] MEDS ORDERED: LIDOCAINE 1%-EPI 1:100000 20 ML MDV SUBQ STA (08:25)
[2022-06-11 09:10] LABS: CALCIUM 9.5 mg/dL (8.5-10.3); POTASSIUM 4.2 mmol/L (3.5-5.0)
[2022-06-11 09:43] VITALS: BP 136/106
[2022-06-11 10:01] LABS: CC,BF RBC 9000 /mm^3; CC,BF WBC 85310 /mm^3
[2022-06-11 10:21] LABS: LYMPHOCYTES %,BODY FLUID 5 %; NEUTROPHILS %, BF 93 %
[2022-06-11 10:22] LABS: BF CLARITY CLOUDY; BF COLOR YELLOW; MONOCYTES %,BODY FLUID 2 %
[2022-06-11 10:24] LABS: BF SOURCE RIGHT ELBOW FLUID
== END 2022-06-11 10:01 | disposition home or self-care (01) ==
LOC: ED 07:53
DX: M70.22 Olecranon bursitis, left elbow (principal)
CPT/HCPCS: 36415; 80048; 87070; 87181; 87205; 89051; 96372; 96374; 96375; 99282; 99283; A9270

== ENCOUNTER 2022-09-07 23:31 | Outpatient (CLI) | payer MEDICARE, OTHER | END 2022-09-07 23:32 | disposition EMS.NT | LOC: EMS 23:31 | DX: R46.89 Other symptoms and signs involving appearance and behavior (principal) ==

== ENCOUNTER 2022-11-17 14:55 | Emergency (ER) | payer OTHER, MEDICARE ==
[2022-11-17 15:06] VITALS: BP 154/112
[2022-11-17] MEDS ORDERED: oxyCODONE 5 MG TABLET PO STA (15:18)
[2022-11-17] MEDS ORDERED: ceFAZolin 1 GM VIAL IM STA (15:18)
--- NOTE | 2022-11-17 15:22 | ED Physician Documentation ---
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 Has had multiple debridements most recently a month ago at the [facility]. He was on postoperative antibiotics, he says it started with "oh" so presume oxacillin? He has been off antibiotics for about a week and he had increased pain with a fever of 101 at home today. PD PAST MEDICAL HISTORY - Past Medical History Cardiovascular: Atrial fibrillation, Hypertension Respiratory: None Neuro: None, CVA Endocrine/Autoimmune: None GI: Diverticulitis, Other : None HEENT: None Psych: None Musculoskeletal: Other Derm: None - Past Surgical History Past Surgical History: No General: Hiatal hernia repair, Other Ortho: Other Derm: Skin grafts - Present Medications Home Medications: Ambulatory Orders Medication Instructions Recorded Confirmed Aspirin 81 mg PO DAILY 01/17/17 06/11/22 Atorvastatin Calcium [Lipitor] 80 mg PO DAILY 03/21/22 06/11/22 Diltiazem HCl [Diltiazem 12Hr ER] 120 mg PO DAILY 03/21/22 06/11/22 Clopidogrel [Plavix] 75 mg PO DAILY 30 Days #30 tablet 05/20/22 06/11/22 Sulfamethox/Trimeth 800/160 1 each PO BID #14 tablet 06/11/22 [Bactrim Ds 800/160] cephALEXin [Keflex] 500 mg PO TID #20 cap 06/11/22 Oxycodone HCl/Acetaminophen 1 - 2 each PO Q6H PRN #14 tablet 11/17/22 [Percocet 5-325 mg Tablet] cephALEXin [Keflex] 500 mg PO Q6H #28 cap 11/17/22 - Allergies Allergies/Adverse Reactions: Allergies Allergy/AdvReac Type Severity Reaction Status Date / Time No Known Drug Allergies Allergy Verified 06/16/22 10:40 - Social History Does the pt smoke?: No Smoking Status: Never smoker Does the pt drink ETOH?: Yes Does the pt have substance abuse?: No - Immunizations Immunizations are current?: Yes - POLST Patient has POLST: No PD ED PE NORMAL - Vitals Vital signs reviewed: Yes - General General: Alert and oriented X 3, No acute distress - Derm Derm: Normal color, Warm and dry - Extremities Extremities: Other (He is holding the elbow in flexion, there is cellulitis of the posterior elbow and 2 open areas 1 small superior to the supracondylar area, and one larger over the olecranon that is packed. He was repacked on exam and a culture was taken.) - Neuro Neuro: Alert and oriented X 3, Normal speech Results - Vitals Vitals: Vital Signs - 24 hr 11/17/22 15:03 Temperature 37.1 C Heart Rate 99 Respiratory 14 Rate Blood Pressure 154/112 H O2 Saturation 94 Oxygen O2 Source Room air PD Medical Decision Making - ED course ED course: 62-year-old gentleman with recurrent cellulitis and bursitis of the right elbow. Sent here because he had a fever. He does not have septic physiology. He appears nontoxic. A culture was taken And his wound was repacked and he was given cefazolin 1 g IM here. Departure - Departure Disposition: Home, Self Care Clinical Impression: Olecranon bursitis, right elbow Condition: Good Record reviewed to determine appropriate education?: Yes Instructions: ED Bursitis Prescriptions: cephALEXin [Keflex] 500 mg PO Q6H #28 cap Oxycodone HCl/Acetaminophen [Percocet 5-325 mg Tablet] 1 - 2 each PO Q6H PRN #14 tablet PRN Reason: pain Comments: [facility] with [facility] next week as scheduled, sooner or return for worsening symptoms. Continue current wound care with packing. I sent your prescriptions electronically to [facility] in [place]. We are performing a wound culture, the results should be done in 48-72 hours. If antibiotic change is necessary we will call you. I am prescribing a short course of narcotic pain medication for you. These are potentially dangerous and addictive medications that should be used carefully. These medications may constipate you. Take an zesb-[id number] stool softener (docusate) twice daily with plenty of water while taking these medications. If you go 24 hours without a bowel movement, take [id number] miralax, per package instructions. Do not drink or drive while taking these medications. If you received narcotic or sedating medications while in the emergency department, do not drive for 24 hours. Store this medication in a safe, secure place and out of reach of children. It is a violation of federal law to give or sell this medication to another person or to use in a manner other than prescribed. The ED will not refill narcotic prescriptions, including prescriptions lost or stolen. To dispose of unwanted medications: 1. [facility] at [address] in [place] has a medication drop box. They accept prescription medications (in pill form) Monday through Monday 9:00 a.m. to 5:00 p.m. 2. The [facility] accepts prescription medications (in pill form only) for disposal year round. Call for more information. 3. Contact the [facility] for the next [facility] sponsored prescription drug collection event. , [phone], or [phone]; Note that many narcotic pain relievers also contain Tylenol/acetaminophen. Please ensure that your total dose of acetaminophen from all sources does not exceed 3 g (3000 mg) per day.
== END 2022-11-17 15:46 | disposition home or self-care (01) ==
LOC: ED 14:55
DX: M70.21 Olecranon bursitis, right elbow (principal)
CPT/HCPCS: 87070; 87205; 96372; 99283; A9270

== ENCOUNTER 2023-01-14 04:23 | Outpatient (CLI) | payer OTHER | END 2023-01-14 23:59 | disposition EMS.NT | LOC: EMS 04:23 | DX: M25.521 Pain in right elbow (principal); Z98.890 Other specified postprocedural states ==

== ENCOUNTER 2023-01-18 12:00 | Emergency (ER) | payer MEDICARE, OTHER ==
[2023-01-18] MEDS ORDERED: HYDROmorphone 1 MG/ML CARPUJECT IVP STA ×3 (12:55→15:32)
[2023-01-18] MEDS ORDERED: ONDANSETRON 4 MG/2 ML VIAL IVP STA (12:56)
--- NOTE | 2023-01-18 13:00 | ED Physician Documentation ---
History of Present Illness - Stated complaint Stated Complaint: RT ARM PX - Chief complaint Chief Complaint: Ext Problem - Additonal information Additional information: 62-year-old male presents to the emergency department for evaluation of increasing pain to the right arm concerns of infection. This gentleman had a history of septic olecranon bursitis. He has been followed by [facility]. He last had a surgical procedure about 2 weeks ago and is scheduled to see [facility] plastic hand surgery this upcoming Monday the . But despite taking OxyContin at home has increased pain and now swelling. Unsure if he has had fevers. Review of Systems Constitutional: reports: Myalgias. denies: Fever Nose: reports: Reviewed and negative Cardiac: reports: Reviewed and negative Respiratory: reports: Reviewed and negative GI: reports: Nausea : reports: Reviewed and negative Skin: reports: Lesions Musculoskeletal: reports: Extremity pain PD PAST MEDICAL HISTORY - Past Medical History Cardiovascular: Atrial fibrillation, Hypertension Respiratory: None Neuro: None, CVA Endocrine/Autoimmune: None GI: Diverticulitis, Other : None HEENT: None Psych: None Musculoskeletal: Other Derm: None - Past Surgical History Past Surgical History: No General: Hiatal hernia repair, Other Ortho: Other Derm: Skin grafts - Present Medications Home Medications: Ambulatory Orders Medication Instructions Recorded Confirmed Aspirin 81 mg PO DAILY 01/17/17 06/11/22 Atorvastatin Calcium [Lipitor] 80 mg PO DAILY 03/21/22 06/11/22 Diltiazem HCl [Diltiazem 12Hr ER] 120 mg PO DAILY 03/21/22 06/11/22 Clopidogrel [Plavix] 75 mg PO DAILY 30 Days #30 tablet 05/20/22 06/11/22 Sulfamethox/Trimeth 800/160 1 each PO BID #14 tablet 06/11/22 [Bactrim Ds 800/160] cephALEXin [Keflex] 500 mg PO TID #20 cap 06/11/22 Oxycodone HCl/Acetaminophen 1 - 2 each PO Q6H PRN #14 tablet 11/17/22 [Percocet 5-325 mg Tablet] cephALEXin [Keflex] 500 mg PO Q6H #28 cap 11/17/22 HYDROmorphone [Dilaudid] 2 mg PO Q6H #15 tablet 01/18/23 Sulfamethox/Trimeth 800/160 1 each PO BID #14 tablet 01/18/23 [Bactrim Ds 800/160] cephALEXin [Keflex] 500 mg PO Q6H #28 cap 01/18/23 - Allergies Allergies/Adverse Reactions: Allergies Allergy/AdvReac Type Severity Reaction Status Date / Time No Known Drug Allergies Allergy Verified 01/18/23 12:11 - Social History Does the pt smoke?: No Smoking Status: Never smoker Does the pt drink ETOH?: Yes Does the pt have substance abuse?: No - Immunizations Immunizations are current?: Yes - POLST Patient has POLST: No PD ED PE EXPANDED - General General: Alert, In Pain - Extremities Extremities: Right arm (Right arm is swollen and erythematous. Extensive excision along the ventral portion of the forearm from mid forearm to just above the elbow. Sutures are intact. Moderate amount of serosanguineous drainage. Quite tender to touch. 2+ radial pulse.) Results - Vitals Vitals: Vital Signs - 24 hr 01/18/23 01/18/23 12:03 13:55 Temperature 36.4 C L 36.6 C Heart Rate 98 88 Respiratory 17 26 H Rate Blood Pressure 133/87 H 124/83 H O2 Saturation 98 96 Oxygen O2 Source Room air - Labs Labs: Laboratory Tests 01/18/23 01/18/23 13:37 13:37 WBC 10.3 RBC 4.27 L Hgb 13.3 L Hct 40.0 L MCV 93.7 MCH 31.1 H MCHC 33.3 RDW 13.5 Plt Count 537 H MPV 7.9 Neut # (Auto) 8.4 H Lymph # (Auto) 1.0 L [place] # (Auto) 0.7 Eos # (Auto) 0.0 Baso # (Auto) 0.0 Absolute Nucleated RBC 0.00 Nucleated RBC % 0.0 Sodium 135 Potassium 3.6 Chloride 98 L Carbon Dioxide 23 Anion Gap 14.0 H BUN 7 Creatinine 0.7 Estimated GFR (MDRD) 114 Glucose 109 H Calcium 8.7 Total Bilirubin 0.7 AST 20 ALT 14 Alkaline Phosphatase 100 Total Protein 7.8 Albumin 3.0 L Globulin 4.8 H Albumin/Globulin Ratio 0.6 L Lipase 29 PD Medical Decision Making - ED course Complexity details: reviewed results, re-evaluated patient, d/w patient ED course: 62-year-old male presents to the emergency department for evaluation of wo rsening right arm pain, redness swelling and serosanguineous drainage from the incision sites where he recently had an incision and drainage/washout of his now chronic olecranon bursitis. He is being followed by [facility] hand/plastics team. He is currently scheduled to see the plastics team this upcoming Monday the but due to increasing pain and swelling presents today to the ER. He appears very uncomfortable but has no fevers. No tachycardia or hypotension. He is taking OxyContin at home which has not been effective at managing his pain. I initially ordered a milligram of Dilaudid IV as well as Zofran which gave him some modest relief of pain. I then reordered a second dose of 1 mg Dilaudid IV. I have obtained a CBC and electrolytes. Per my interpretation there is no acute worrisome findings. Though the patient has pain he does not appear toxic, and is afebrile without leukocytosis. I was able to speak with the nurse Enrike at [facility] hand surgery clinic. She indicated to me that the patient last had an incision and drainage/washout in mid November of this right olecranon bursitis. He did have a culture of his wound in October that showed an MSSA. He received a 7-day course of Bactrim in October and again on November 22. Has not received any antibiotics since. At this time given improved pain with Dilaudid patient will be discharged with a prescription for Keflex and Bactrim. Given that the oxy does not appear to be controlling his pain a prescription for Dilaudid is sent to the patient's preferred pharmacy. He is scheduled to see plastics on Monday at [facility]. I discussed with patient the usual appropriate return precautions I am prescribing a short course of short-acting opioid pain medication for this patient. I have reviewed the patients [employer] and no concerning findings were noted. I have discussed that the opioids are for short term therapy only, and will not be refilled from the ED. Departure - Departure Disposition: Home, Self Care Clinical Impression: Right forearm cellulitis, Olecranon bursitis of right elbow Condition: Stable Record reviewed to determine appropriate education?: Yes Instructions: Cellulitis Dc Prescriptions: Sulfamethox/Trimeth 800/160 [Bactrim Ds 800/160] 1 each PO BID #14 tablet HYDROmorphone [Dilaudid] 2 mg PO Q6H #15 tablet cephALEXin [Keflex] 500 mg PO Q6H #28 cap Comments: Jay you came to the emergency department for increasing pain in your right arm. The surgical incisions look intact. We have sent a swab For culture and will notify you if we need to make an antibiotic change. My hope is that by starting antibiotics infection begins to improve as well as pain. I have sent a prescription for Dilaudid, and oral medication to the [facility] in [place]. You can take this 4 times a day. Please do not take the Oxy while taking this. It is critical that you continue to follow closely with your arm surgery team at [facility]. If you find your symptoms are worsening return to the emergency department.
[2023-01-18] MEDS ORDERED: SODIUM CHLORIDE 0.9% 1,000 ML IV STA (13:33)
[2023-01-18 13:48] LABS: BASOPHILS % (AUTO) 0.4 %; EOSINOPHILS % (AUTO) 0.3 %; HGB - HEMOGLOBIN 13.3 g/dL (14.0-18.0); LYMPHOCYTES % (AUTO) 9.8 %; MEAN CORPUSCULAR HEMOGLOBIN 31.1 pg (27.0-31.0); MEAN CORPUSCULAR HGB CONC 33.3 g/dL (32.0-36.0); MEAN CORPUSCULAR VOLUME 93.7 fL (80.0-94.0); MEAN PLATELET VOLUME 7.9 fL (7.4-11.4); MONOCYTES # (AUTO) 0.7 10^3/uL (0.0-1.0); MONOCYTES % (AUTO) 6.7 %; NEUTROPHILS # (AUTO) 8.4 10^3/uL (1.5-6.6); NEUTROPHILS % (AUTO) 82.3 %; PLT - PLATELET COUNT 537 10^3/uL (130-450); RED BLOOD COUNT 4.27 10^6/uL (4.70-6.10); RED CELL DISTRIBUTION WIDTH 13.5 % (12.0-15.0); WHITE BLOOD COUNT 10.3 x10^3/uL (4.8-10.8)
--- OUTSIDE RECORDS SUMMARY | 2023-01-18 13:57 | EXTERNAL MEDICAL SUMMARY RPT | Continuity of Care Document ---
:1960 Author Organization [facility] Address [address] [place] [address] Phone Care Team Providers Name Role Phone Unavailable Unavailable Unavailable Sven Butt Pa-C Unavailable Unavailable Allergies No information. Encounters No information. Functional Status No information. Immunizations No information. Medications date description facility 2022-11-21 00:00 [facility]IN [facility] 2022-11-22 00:00 [facility]VASTATIN [facility] 2022-11-21 00:00 aspirin [facility] 2022-11-22 00:00 aspirin [facility] 2022-11-21 00:00 aspirin [facility] 2022-11-22 00:00 aspirin [facility] 2022-11-21 00:00 atorvastatin [facility] 2022-11-22 00:00 atorvastatin [facility] 2022-11-21 00:00 atorvastatin [facility] 2022-11-22 00:00 atorvastatin [facility] 2022-11-21 00:00 SIMVASTATIN [facility] 2022-11-22 00:00 SIMVASTATIN [facility] 2022-11-21 00:00 SIMVASTATIN [facility] 2022-11-22 00:00 SIMVASTATIN [facility] 2022-11-21 00:00 atorvastatin [facility] 2022-11-22 00:00 atorvastatin [facility] 2022-11-21 00:00 aspirin [facility] 2022-11-22 00:00 aspirin [facility] 2022-11-21 00:00 atorvastatin [facility] 2022-11-22 00:00 atorvastatin [facility] Problems date description facility 2022-11-19 00:00 Dehiscence of external surgical [facility] 2022-11-19 00:00 Bursitis of elbow [facility] 2022-11-19 00:00 Other bursitis of elbow, right elbow [facility] 2022-11-19 00:00 Disruption of external operation [facility] (surgical[facility] wound, not elsewhere [facility] classified, initial encounter 2022-11-21 00:00 Dehiscence of external surgical [facility] incision [facility] 2022-11-21 00:00 Other and unspecified hyperlipidemia [facility] 2022-11-21 00:00 Chronic low back pain [facility] 2022-11-21 00:00 Thoracic back pain [facility] 2022-11-21 00:00 Paroxysmal supraventricular [facility] tachycardia [facility] 2022-11-21 00:00 Hyperlipidemia [facility] 2022-11-21 00:00 Lumbago [facility] 2022-11-21 00:00 Obstructive sleep apnea syndrome [facility] 2022-11-21 00:00 Neck pain [facility] 2022-11-21 00:00 Hyperlipidemia, unspecified [facility] 2022-11-21 00:00 Obstructive sleep apnea (adult) [facility]pediatric[facility] 2022-11-21 00:00 Supraventricular tachycardia [facility] 2022-11-21 00:00 Cervicalgia [facility] 2022-11-21 00:00 Low back pain [facility] 2022-11-21 00:00 Pain in thoracic spine [facility] 2022-11-21 00:00 Palpitations [facility] 2022-11-21 00:00 Disruption of external operation [facility] (surgical) wound, not elsewhere [facility] [place] classified, subsequent encounter 2022-11-21 00:00 Encounter for other specified [facility] 2022-11-22 00:00 Other and unspecified hyperlipidemia [facility] 2022-11-22 00:00 [facility] 2022-11-22 00:00 Thoracic back pain [facility] 2022-11-22 00:00 Paroxysmal supraventricular [facility] tachycardia [facility] 2022-11-22 00:00 Hyperlipidemia [facility] 2022-11-22 00:00 Lumbago [facility] 2022-11-22 00:00 Obstructive sleep apnea syndrome [facility] 2022-11-22 00:00 Neck pain [facility] 2022-11-22 00:00 Hyperlipidemia, unspecified [facility] 2022-11-22 00:00 Obstructive sleep apnea (adult) [facility]ped[facility] 2022-11-22 00:00 Supraventricular tachycardia [facility] 2022-11-22 00:00 Cervicalgia [facility] 2022-11-22 00:00 Low back pain [facility] [place] 2022-11-22 00:00 Pain in thoracic spine [facility] 2022-11-22 00:00 Palpitations [facility] [place] Procedures date description facility 2022-11-19 00:00 Visit Code Hold [facility] 2022-11-21 00:00 Visit Code Hold [facility] Results/Labs No information. Social History date description facility 2022-11-19 00:00 Never smoker [facility] 2022-11-21 00:00 Never smoker [facility] Vital Signs date measurement value units 2022-11-21 00:00 BMI 27.30 kg/m2 2022-11-21 00:00 BP_diastolic 97 mmHg 2022-11-21 00:00 BP_systolic 135 mmHg 2022-11-21 00:00 heart_rate 90 /min 2022-11-21 00:00 height_metric 170.81 cm 2022-11-21 00:00 height_standard 67.25 in 2022-11-21 00:00 respiration_rate 16 /min 2022-11-21 00:00 temperature_metric 36.28 C 2022-11-21 00:00 temperature_standard 97.3 F 2022-11-21 00:00 weight_metric 79.38 kg 2022-11-21 00:00 weight_standard 175 lb
[2023-01-18 14:08] LABS: ALBUMIN/GLOBULIN RATIO 0.6 (1.0-2.2); BILIRUBIN,TOTAL 0.7 mg/dL (0.2-1.0); CALCIUM 8.7 mg/dL (8.5-10.3); CREATININE 0.7 mg/dL (0.6-1.2); POTASSIUM 3.6 mmol/L (3.5-5.0); TOTAL PROTEIN 7.8 g/dL (6.7-8.2)
[2023-01-18] MEDS ORDERED: LORazepam 2 MG/ML VIAL IVP STA (14:22)
[2023-01-18] MEDS ORDERED: SULFAMETH/TRIMETH DS 800/160 MG TABLET PO STA (15:32)
[2023-01-18] MEDS ORDERED: cephALEXin 250 MG CAPSULE PO STA (15:32)
[2023-01-18 16:57] VITALS: BP 117/79
== END 2023-01-18 16:57 | disposition home or self-care (01) ==
LOC: ED 12:00
DX: L03.113 Cellulitis of right upper limb (principal); M70.21 Olecranon bursitis, right elbow
CPT/HCPCS: 36415; 80053; 83690; 85025; 87070; 87181; 87205; 96374; 96375; 96376; 99284; A9270; J1170

== ENCOUNTER 2023-06-01 08:00 | Outpatient (CLI) | payer MEDICARE ==
--- NOTE | 2023-06-01 15:14 | XRAY Report ---
PROCEDURE: Wrist 3 View LT INDICATIONS: LEFT WRIST CYST TECHNIQUE: 3 views of the wrist were acquired. COMPARISON: Wrist radiographs 05/10/2022. FINDINGS: Bones: No acute fractures or dislocations. Similar lucency in the distal ulna, which may represent a cyst. Similar mild degenerative joint disease in the radiocarpal, triscaphe the and first [facility] joint s. Soft tissues: Redemonstration of soft tissue mass at the radial aspect of the wrist, which has incre ased in size since 05/10/2022. Currently it measures approximately 3.1 x 1.8 cm, previously 2.2 x 1.4 c m IMPRESSION: Interval increased size of soft tissue mass in the radial aspect of the wrist since 05/10/2022. Conside r further evaluation with ultrasound or MRI if clinically indicated. Reviewed by: Noelle Oleary MD on 06/01/2023 3:13 PM PDT Approved by: Noelle Oleary MD on 06/01/2023 3:13 PM PDT Station ID: [id number]
== END 2023-06-01 23:59 | disposition home or self-care (01) ==
LOC: DI.WOS 08:00
PROVIDERS: ATTEND Physician Assistant Surgical
DX: R93.6 Abnormal findings on diagnostic imaging of limbs (principal); R93.89 Abnormal findings on diagnostic imaging of other specified body structures

== ENCOUNTER 2023-08-04 12:04 | Outpatient (CLI) | payer MEDICARE | END 2023-08-04 23:59 | disposition short-term general hospital (02) | LOC: EMS 12:04 | DX: R07.9 Chest pain, unspecified (principal); R42 Dizziness and giddiness; R23.1 Pallor; R61 Generalized hyperhidrosis | CPT/HCPCS: A0425; A0427 ==

== ENCOUNTER 2024-03-05 10:46 | Emergency (ER) | payer MEDICARE ==
[2024-03-05 11:43] LABS: BASOPHILS % (AUTO) 0.5 %; HCT - HEMATOCRIT 42.6 % (42.0-52.0); HGB - HEMOGLOBIN 14.3 g/dL (14.0-18.0); LYMPHOCYTES # (AUTO) 0.5 10^3/uL (1.5-3.5); LYMPHOCYTES % (AUTO) 6.8 %; MEAN CORPUSCULAR HEMOGLOBIN 31.8 pg (27.0-31.0); MEAN CORPUSCULAR HGB CONC 33.6 g/dL (32.0-36.0); MEAN CORPUSCULAR VOLUME 94.9 fL (80.0-94.0); MEAN PLATELET VOLUME 8.1 fL (7.4-11.4); MONOCYTES # (AUTO) 0.4 10^3/uL (0.0-1.0); MONOCYTES % (AUTO) 5.8 %; NEUTROPHILS # (AUTO) 6.6 10^3/uL (1.5-6.6); NEUTROPHILS % (AUTO) 86.6 %; PLT - PLATELET COUNT 326 10^3/uL (130-450); RED BLOOD COUNT 4.49 10^6/uL (4.70-6.10); RED CELL DISTRIBUTION WIDTH 12.7 % (12.0-15.0); WHITE BLOOD COUNT 7.7 x10^3/uL (4.8-10.8)
[2024-03-05 11:59] LABS: ALBUMIN 4.5 g/dL (3.2-5.5); ALBUMIN/GLOBULIN RATIO 1.4 (1.0-2.2); BILIRUBIN,TOTAL 0.7 mg/dL (0.2-1.0); CALCIUM 9.3 mg/dL (8.5-10.3); CREATININE 0.8 mg/dL (0.6-1.3); POTASSIUM 3.9 mmol/L (3.5-4.5); TOTAL PROTEIN 7.7 g/dL (6.4-8.9)
[2024-03-05] MEDS: ONDANSETRON ODT 4 MG TABLET TL STA (14:09)
[2024-03-05 14:36] LABS: CK- CREATINE KINASE 161 IU/L (30-223); ETOH - ETHANOL 12.6 mg/dL; MAGNESIUM 1.6 mg/dL (1.7-2.3)
[2024-03-05 14:37] LABS: ACETAMINOPHEN < 0.1 ug/mL; SALICYLATE < 1.5 mg/dL
[2024-03-05 14:38] LABS: BILIRUBIN,URINE NEGATIVE (NEGATIVE); GLUCOSE, URINE (UA) NEGATIVE (NEGATIVE); KETONES,URINE (UA) 15 mg/dL (NEGATIVE); LEUKOCYTE ESTERASE, URINE NEGATIVE (NEGATIVE); NITRITE,URINE NEGATIVE (NEGATIVE); OCCULT BLOOD,URINE NEGATIVE (NEGATIVE); PH,URINE 7.5 PH (5.0-7.5); PROTEIN,URINE 30 mg/dL (NEGATIVE); UROBILINOGEN,URINE 0.2 (NORMAL) E.U./dL (NORMAL)
[2024-03-05 14:39] LABS: CLARITY,URINE CLEAR (CLEAR)
[2024-03-05 14:48] LABS: BACTERIA,URINE Few /HPF (None Seen); RBC,URINE None Seen /HPF (0-5); SQUAMOUS EPITHELIAL CELL,UR FEW Squamous (<= Few); WBC,URINE 0-3 /HPF (0-3)
[2024-03-05 14:50] LABS: AMPHETAMINE SCREEN,URINE NEGATIVE (NEGATIVE); BARBITURATE SCREEN,UR NEGATIVE (NEGATIVE); BENZODIAZEPINES SCREEN, URINE POSITIVE (NEGATIVE); BUPRENORPHINE SCREEN, URINE NEGATIVE (NEGATIVE); COCAINE SCREEN URINE NEGATIVE (NEGATIVE); METHADONE SCREEN, URINE NEGATIVE (NEGATIVE); METHAMPHETAMINES SCREEN, URINE NEGATIVE (NEGATIVE); OPIATE SCREEN, URINE NEGATIVE (NEGATIVE); OXYCODONE SCREEN, URINE NEGATIVE (NEGATIVE); THC CANNABINOID SCREEN, URINE POSITIVE (NEGATIVE); TRICYCLIC ANTIDEPRESSANT,URINE NEGATIVE (NEGATIVE)
--- NOTE | 2024-03-05 15:06 | ED Physician Documentation ---
History of Present Illness - Stated complaint Stated Complaint: DETOX - Chief complaint Chief Complaint: General - Additonal information Additional information: 63-year-old male with history of A-fib, hypertension, UT, diverticulitis, CVA, alcohol dependence presents emergency department for desire to detox from alcohol. Patient says that he drinks about a half of 1/5 of vodka a day he says that he has never had alcohol withdrawal symptoms in the past that he has never had withdrawal seizures. He says he has tried to get in with a to a detox facility they told him he needed to be seen by ER provider to be medically cleared. He denies any chest pain or shortness of breath he endorses an nausea and says that his last alcoholic beverage was yesterday. PD PAST MEDICAL HISTORY - Past Medical History Cardiovascular: Hypertension, UT, Atrial fibrillation Respiratory: None Neuro: None, CVA Endocrine/Autoimmune: None GI: Diverticulitis, Other : None HEENT: None Psych: None Musculoskeletal: Other Derm: None - Past Surgical History Past Surgical History: No General: Hiatal hernia repair, Other Ortho: Other Derm: Skin grafts - Present Medications Home Medications: Ambulatory Orders Medication Instructions Recorded Confirmed Aspirin 81 mg PO DAILY 01/17/17 06/11/22 Atorvastatin Calcium [Lipitor] 80 mg PO DAILY 03/21/22 06/11/22 Diltiazem HCl [Diltiazem 12Hr ER] 120 mg PO DAILY 03/21/22 06/11/22 Clopidogrel [Plavix] 75 mg PO DAILY 30 Days #30 tablet 05/20/22 06/11/22 Sulfamethox/Trimeth 800/160 1 each PO BID #14 tablet 06/11/22 [Bactrim Ds 800/160] cephALEXin [Keflex] 500 mg PO TID #20 cap 06/11/22 Oxycodone HCl/Acetaminophen 1 - 2 each PO Q6H PRN #14 tablet 11/17/22 [Percocet 5-325 mg Tablet] cephALEXin [Keflex] 500 mg PO Q6H #28 cap 11/17/22 HYDROmorphone [Dilaudid] 2 mg PO Q6H #15 tablet 01/18/23 Sulfamethox/Trimeth 800/160 1 each PO BID #14 tablet 01/18/23 [Bactrim Ds 800/160] cephALEXin [Keflex] 500 mg PO Q6H #28 cap 01/18/23 - Allergies Allergies/Adverse Reactions: Allergies Allergy/AdvReac Type Severity Reaction Status Date / Time No Known Drug Allergies Allergy Verified 01/18/23 12:11 - Social History Does the pt smoke?: No Smoking Status: Never smoker Does the pt drink ETOH?: Yes ETOH Use: Liquor Does the pt have substance abuse?: No - Immunizations Immunizations are current?: Yes - POLST Patient has POLST: No PD ED PE NORMAL - Vitals Vital signs reviewed: Yes - General General: Alert and oriented X 3, No acute distress, Well developed/nourished - HEENT HEENT: Atraumatic, PERRL - Neck Neck: No bony TTP - Cardiac Cardiac: RRR - Respiratory Respiratory: No respiratory distress, Clear bilaterally - Abdomen Abdomen: Normal bowel sounds, Soft - Derm Derm: Normal color, Warm and dry, No rash - Neuro Neuro: Alert and oriented X 3, radio reporter 2-12 intact, No motor deficit, No sensory deficit, Normal speech Eye Opening: Spontaneous Motor: Obeys Commands Verbal: Oriented GCS Score: 15 - Psych Psych: Normal mood Results - Vitals Vitals: Vital Signs - 24 hr 03/05/24 03/05/24 11:17 15:37 Temperature 35.7 C L Heart Rate 103 H 106 H Respiratory 18 20 Rate Blood Pressure 153/111 H 148/108 H O2 Saturation 95 92 Oxygen O2 Source Room air - EKG (time done) 1417 EKG releavant findings:: EKG personally interpreted by author of this note. Relevant findings are: Rate: Rate (enter#) (96) Rhythm: NSR [place]: Normal Intervals: Prolonged NM (221) QRS: Normal Ischemia: Normal ST segments Compare to prior EKG: Other (. Ventricular premature complexes incomplete right bundle branch block) Computer interpretation: Agree with computer - Labs Labs: Laboratory Tests 03/05/24 03/05/24 03/05/24 11:36 11:36 11:36 WBC 7.7 RBC 4.49 L Hgb 14.3 Hct 42.6 MCV 94.9 H MCH 31.8 H MCHC 33.6 RDW 12.7 Plt Count 326 MPV 8.1 Neut # (Auto) 6.6 Lymph # (Auto) 0.5 L [place] # (Auto) 0.4 Eos # (Auto) 0.0 Baso # (Auto) 0.0 Absolute Nucleated RBC 0.00 Nucleated RBC % 0.0 Sodium 138 Potassium 3.9 Chloride 101 Carbon Dioxide 23 Anion Gap 14.0 H BUN 9 Creatinine 0.8 Estimated GFR (MDRD) 97 Glucose 129 H Calcium 9.3 Magnesium 1.6 L Total Bilirubin 0.7 AST 33 ALT 34 Alkaline Phosphatase 88 Total Creatine Kinase 161 Total Protein 7.7 Albumin 4.5 Globulin 3.2 Albumin/Globulin Ratio 1.4 Lipase 13 TSH 1.60 Urine Color Urine Clarity Urine pH Ur Specific [place] Urine Protein Urine Glucose (UA) Urine Ketones Urine Occult Blood Urine Nitrite Urine Bilirubin Urine Urobilinogen Ur Leukocyte Esterase Urine RBC Urine WBC Ur Squamous Epith Cells Urine Bacteria Ur Microscopic Review Urine Culture Comments Salicylates < 1.5 Urine Opiates Screen Ur Buprenorphine Scrn Ur Oxycodone Screen Urine Methadone Screen Acetaminophen < 0.1 Ur Barbiturates Screen Ur Tricyclics Screen Ur Phencyclidine Scrn Ur Amphetamine Screen U Methamphetamines Scrn U Benzodiazepines Scrn Urine Cocaine Screen U Cannabinoids Screen Ur Drug Screen Comment Ethyl Alcohol 12.6 03/05/24 14:30 WBC RBC Hgb Hct MCV MCH MCHC RDW Plt Count MPV Neut # (Auto) Lymph # (Auto) [place] # (Auto) Eos # (Auto) Baso # (Auto) Absolute Nucleated RBC Nucleated RBC % Sodium Potassium Chloride Carbon Dioxide Anion Gap BUN Creatinine Estimated GFR (MDRD) Glucose Calcium Magnesium Total Bilirubin AST ALT Alkaline Phosphatase Total Creatine Kinase Total Protein Albumin Globulin Albumin/Globulin Ratio Lipase TSH Urine Color YELLOW Urine Clarity CLEAR Urine pH 7.5 Ur Specific [place] 1.020 Urine Protein 30 H Urine Glucose (UA) NEGATIVE Urine Ketones 15 H Urine Occult Blood NEGATIVE Urine Nitrite NEGATIVE Urine Bilirubin NEGATIVE Urine Urobilinogen 0.2 (NORMAL) Ur Leukocyte Esterase NEGATIVE Urine RBC None Seen Urine WBC 0-3 Ur Squamous Epith Cells FEW Squamous Urine Bacteria Few Ur Microscopic Review INDICATED Urine Culture Comments NOT INDICATED Salicylates Urine Opiates Screen NEGATIVE Ur Buprenorphine Scrn NEGATIVE Ur Oxycodone Screen NEGATIVE Urine Methadone Screen NEGATIVE Acetaminophen Ur Barbiturates Screen NEGATIVE Ur Tricyclics Screen NEGATIVE Ur Phencyclidine Scrn NEGATIVE Ur Amphetamine Screen NEGATIVE U Methamphetamines Scrn NEGATIVE U Benzodiazepines Scrn POSITIVE H Urine Cocaine Screen NEGATIVE U Cannabinoids Screen POSITIVE H Ur Drug Screen Comment CUTOFF CONC BELOW: Ethyl Alcohol PD Medical Decision Making - ED course ED course: 63-year-old male presents emergency department for medical clearance to can check in to [facility] for alcohol detoxification. Labs have been complete while patient was here no leukocytosis no significant anemia no significant electrolyte abnormalities aside from a very mild hypomagnesemia at 1.6. TSH normal lipase normal liver enzymes also normal. Urinalysis does not show any signs or symptoms of infection. Alcohol level is 12.6 patient does appear to be sober he just endorses a nausea he was given some Ativan and Zofran to help with his nausea symptoms. U tox positive for benzos and cannabinoids. At this point in time I do believe that patient is medically cleared for detox EKG is complete shows normal sinus rhythm with a possible old inferior infarct and incomplete right bundle branch block. Patient denies any chest pain or other concerning symptoms I believe that he is safe for discharge and safe to be admitted at [facility] for alcohol withdrawal Departure - Departure Disposition: Home, Self Care Clinical Impression: S/P alcohol detoxification Instructions: Withdrawal Alcohol What Expect Comments: Thank you for trusting us with your care. We have completed labs as well as an EKG and I am not seeing any acute abnormalities or findings at this point in time and I do believe that you are medically cleared to be admitted for alcohol detoxification. Wishing you the best in your recovery. Forms: PCP List Discharge Date/Time: 03/05/24 15:38
[2024-03-05] MEDS: LORazepam 1 MG TABLET PO STA (15:08)
[2024-03-05 15:45] VITALS: BP 148/108; O2SAT 92
== END 2024-03-05 15:38 | disposition home or self-care (01) ==
LOC: ED 10:46
DX: F10.20 Alcohol dependence, uncomplicated (principal); Y90.0 Blood alcohol level of less than 20 mg/100 ml; I10 Essential (primary) hypertension; I48.91 Unspecified atrial fibrillation; Z79.82 Long term (current) use of aspirin; Z79.899 Other long term (current) drug therapy; Z79.02 Long term (current) use of antithrombotics/antiplatelets
CPT/HCPCS: 36415; 80053; 80143; 80306; 81001; 82550; 83690; 83735; 84443; 85025; 93005; 99283; 99284; G0480; J8499; Q0162; 80179; 81003; 82077; 87086

== ENCOUNTER 2024-05-02 14:25 | Outpatient (CLI) | payer MEDICARE | END 2024-05-02 14:26 | disposition EMS.NT | LOC: EMS 14:25 | DX: S01.511A Laceration without foreign body of lip, initial encounter (principal); Y04.0XXA Assault by unarmed brawl or fight, initial encounter; Y93.89 Activity, other specified; Y92.009 Unspecified place in unspecified non-institutional (private) residence as the place of occurrence of the external cause ==

== ENCOUNTER 2024-05-02 20:07 | Outpatient (CLI) | payer OTHER, MEDICARE | END 2024-05-02 20:08 | disposition critical access hospital (66) | LOC: EMS 20:07 | DX: R07.9 Chest pain, unspecified (principal) | CPT/HCPCS: A0425; A0427 ==

== ENCOUNTER 2024-05-02 20:11 | Emergency (ER) | payer OTHER, MEDICARE ==
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
[2024-05-02 20:30] LABS: BASOPHILS % (AUTO) 0.6 %; EOSINOPHILS # (AUTO) 0.1 10^3/uL (0.0-0.7); EOSINOPHILS % (AUTO) 0.8 %; HCT - HEMATOCRIT 42.6 % (42.0-52.0); HGB - HEMOGLOBIN 14.5 g/dL (14.0-18.0); LYMPHOCYTES # (AUTO) 1.7 10^3/uL (1.5-3.5); LYMPHOCYTES % (AUTO) 24.3 %; MEAN CORPUSCULAR HEMOGLOBIN 32.7 pg (27.0-31.0); MEAN CORPUSCULAR VOLUME 95.9 fL (80.0-94.0); MEAN PLATELET VOLUME 8.4 fL (7.4-11.4); MONOCYTES # (AUTO) 0.6 10^3/uL (0.0-1.0); MONOCYTES % (AUTO) 8.7 %; NEUTROPHILS # (AUTO) 4.7 10^3/uL (1.5-6.6); NEUTROPHILS % (AUTO) 65.5 %; PLT - PLATELET COUNT 281 10^3/uL (130-450); RED BLOOD COUNT 4.44 10^6/uL (4.70-6.10); RED CELL DISTRIBUTION WIDTH 12.9 % (12.0-15.0); WHITE BLOOD COUNT 7.1 x10^3/uL (4.8-10.8)
[2024-05-02 20:35] LABS: INR 1.1 (0.8-1.2); PT - PROTHROMBIN TIME 11.9 secs (9.9-12.6)
[2024-05-02 20:47] LABS: ACETAMINOPHEN 0.3 ug/mL; ALBUMIN 4.8 g/dL (3.2-5.5); ALBUMIN/GLOBULIN RATIO 1.7 (1.0-2.2); ALKALINE PHOSPHATASE 81 IU/L (42-121); ALT ALANINE AMINOTRANSFERASE 53 IU/L (10-60); AST ASPARTATE AMINOTRANSFERASE 57 IU/L (10-42); BILIRUBIN,TOTAL 0.5 mg/dL (0.2-1.0); BUN - BLOOD UREA NITROGEN 12 mg/dL (6-20); CALCIUM 9.2 mg/dL (8.5-10.3); CARBON DIOXIDE - CO2 21 mmol/L (21-32); CHLORIDE 106 mmol/L (101-111); CREATININE 0.9 mg/dL (0.6-1.3); ETOH - ETHANOL 249.9 mg/dL; GFR - MDRD 85 (>89); GLUCOSE 103 mg/dL (74-104); LIPASE 40 U/L (11-82); MAGNESIUM 1.6 mg/dL (1.7-2.3); SODIUM 140 mmol/L (135-145); TOTAL PROTEIN 7.6 g/dL (6.4-8.9)
[2024-05-02 20:49] LABS: SALICYLATE < 1.5 mg/dL
[2024-05-02] MEDS: NITROGLYCERIN 2% PASTE TOP STA (20:52)
[2024-05-02] MEDS: ONDANSETRON 4 MG/2 ML VIAL IVP STA (20:53)
[2024-05-02] MEDS: ASPIRIN 325 MG TABLET PO STA (20:53)
[2024-05-02] MEDS: SODIUM CHLORIDE 0.9% 1,000 ML IV STA (20:54)
--- NOTE | 2024-05-02 20:55 | XRAY Report ---
PROCEDURE: Chest 1V INDICATIONS: chest pain, sob TECHNIQUE: One view of the chest was acquired. COMPARISON: None. FINDINGS: Surgical changes and devices: None. Lungs and pleura: No pleural effusions or pneumothorax. Lungs are clear. Mediastinum: Mediastinal contours appear normal. Heart size is normal. Bones and chest wall: No suspicious bony lesions. Overlying soft tissues appear unremarkable. IMPRESSION: No acute cardiopulmonary process. Reviewed by: Kota Ho MD on 05/02/2024 8:54 PM PDT Approved by: Kota Ho MD on 05/02/2024 8:54 PM PDT Station ID: [id number]
[2024-05-02 21:03] LABS: TROPONIN I HIGH SENSITIVITY 23.4 ng/L (2.3-19.7)
[2024-05-02] MEDS: LORazepam 2 MG/ML VIAL IVP STA (21:08)
[2024-05-02 23:49] VITALS: O2SAT 96
[2024-05-03 00:32] VITALS: BP 131/90
== END 2024-05-03 00:15 | disposition home or self-care (01) ==
LOC: EDUNIT# → ED 20:11
DX: R07.89 Other chest pain (principal); F10.129 Alcohol abuse with intoxication, unspecified; Y90.8 Blood alcohol level of 240 mg/100 ml or more; I25.10 Atherosclerotic heart disease of native coronary artery without angina pectoris; R00.0 Tachycardia, unspecified; R09.02 Hypoxemia; I25.2 Old myocardial infarction; I10 Essential (primary) hypertension
CPT/HCPCS: 36415; 71045; 80053; 80143; 80179; 82077; 83690; 83735; 84484; 85025; 85610; 93005; 96361; 96374; 96375; 99284; A9270; J2060